=== PATIENT | male | born 1940 | race Caucasian/White ===

== ENCOUNTER 2019-02-11 17:48 | Emergency (ER) | payer OTHER ==
[2019-02-11] MEDS ORDERED: NA CHLORIDE 0.9% 2,000 ML ONE (19:42)
[2019-02-11] MEDS ORDERED: NA CHLORIDE 0.9% 500 ML ONE (19:43)
[2019-02-11 19:54] LABS: Absolute Lymphocytes (CBC) 0.6 K/uL (0.7-4.9); Absolute Monocytes 1.1 K/uL (0.1-1.3); Absolute Neutrophil 5.9 K/uL (1.8-8.0); Basophils % 0.4 % (0-1.3); Eosinophils % 1.5 % (0-4.4); Hematocrit 41.6 % (39.6-49.0); Lymphocytes % 7.7 % (15.3-44.8); MPV 9.2 fL (7.6-11.3); Monocytes % 14.4 % (3.3-12.3); RBC Red Blood Cell Count 4.58 M/uL (4.33-5.43)
--- NOTE | 2019-02-11 20:00 | RAD REPORT ---
EXAM DESCRIPTION: RAD - Chest Single View - 02/11/2019 7:49 pm CLINICAL HISTORY: Cough;Fever Chest pain. COMPARISON: CHEST PA AND LAT 2 VIEW dated 08/09/2011; CHEST PA AND LAT 2 VIEW dated 08/11/2002 FINDINGS: Portable technique limits examination quality. The lungs are grossly clear. The heart is normal in size. No displaced fractures. IMPRESSION: No acute intrathoracic process suspected.
[2019-02-11 20:03] LABS: ALT/SGPT 24 U/L (12-78); AST/SGOT 15 U/L (15-37); Albumin 3.9 g/dL (3.4-5.0); Alkaline Phosphatase 116 U/L (45-117); BUN Blood Urea Nitrogen 11 mg/dL (7-18); Bicarbonate 26 mmol/L (21-32); Bilirubin Direct 0.2 mg/dL (0-0.2); Bilirubin Total 0.8 mg/dL (0.2-1.0); CKMB Creatine Kinase MB < 1.0 ng/mL (0.3-3.6); Creatine Phosphokinase 145 U/L (39-308); Glucose Level 181 mg/dL (74-106); Lipase 108 U/L (73-393); Potassium 3.8 mmol/L (3.5-5.1); Protein, Total 7.4 g/dL (6.4-8.2); Sodium Level 136 mmol/L (136-145); Troponin (Emerg Dept Use Only) < 0.02 ng/mL (0.0-0.045)
[2019-02-11] MEDS ORDERED: OSELTAMIVIR 75 MG CAP ONE (20:50)
[2019-02-11 20:51] LABS: Urine Blood TRACE (NEG); Urine Glucose TRACE (NEG); Urine Protein 1+ (NEG); Urine Specific Gravity 1.015 (1.005-1.030)
[2019-02-11 21:06] LABS: Urine Bacteria NONE SEEN /HPF (NONE SEEN); Urine Culture Reflex Order NOT NEEDED; Urine RBC <5 /HPF (NONE SEEN)
--- NOTE | 2019-02-11 21:07 | ER ---
Nurse's Notes [facility] Name: Boris Grimaldo Age: 78 yrs Sex: Male : 1940 Arrival Date: 02/11/2019 Time: 17:51 Bed 13 Private MD: Diagnosis: Influenza due to identified novel influenza A virus Presentation: 02/11 18:17 Presenting complaint: states: Fever since last night, fatigue, slept all day, 1 ph episode or urinary incontinence, and confusion after waking, denies pain ,N/V/D. Transition of care: patient was not received from another setting of care. Onset of symptoms was February 11, 2019. Risk Assessment: Do you want to hurt yourself or someone else? Patient reports no desire to harm self or others. Initial Sepsis Screen: Does the patient meet any 2 criteria? No. Patient's initial sepsis screen is negative. Does the patient have a suspected source of infection? Yes: Dysuria/Frequency/Urgency/UTI. Initial Sepsis Screen: Does the patient meet any 2 criteria? Altered Mental Status. HR > 90 bpm. Yes Does the patient have a suspected source of infection?. Care prior to arrival: Medication(s) given: Tylenol, 1000 mg, at 1730. 18:17 Method Of Arrival: Wheelchair ph 18:17 Acuity: BABATUNDE 2 ph Triage Assessment: 19:30 General: Appears in no apparent distress. comfortable, Behavior is calm, cooperative, cc3 appropriate for age. 19:30 Pain: Denies pain. EENT: No signs and/or symptoms were reported regarding the EENT cc3 system. Neuro: Level of Consciousness is awake, alert, obeys commands, Oriented to person, place, situation. Cardiovascular: Patient's skin is warm and dry. Respiratory: Airway is patent Respiratory effort is even, unlabored, Respiratory pattern is regular, symmetrical. GI: Abdomen is round non-distended. : No signs and/or symptoms were reported regarding the genitourinary system. Derm: No signs and/or symptoms reported regarding the dermatologic system. Musculoskeletal: Circulation, motion, and sensation intact. Range of motion: intact in bilateral lower limbs. Historical: - Allergies: 18:22 Codeine; ph - PMHx: 18:22 Diabetes - NIDDM; Hyperlipidemia; Hypertension; Dementia; ph - PSHx: 18:22 hydrocele; Lithotripsy; ph - Immunization history:: Adult Immunizations not up to date. - Social history:: Smoking status: Patient/guardian denies using tobacco, never smoked. - Ebola Screening: : No symptoms or risks identified at this time. Screenin:15 Abuse screen: Denies threats or abuse. Denies injuries from another. Nutritional cc3 screening: No deficits noted. Tuberculosis screening: No symptoms or risk factors identified. Fall Risk Ambulatory Aid- None/Bed Rest/Nurse Assist (0 pts). Gait- Weak (10 pts.). Mental Status- Overestimates/Forgets Limitations (15 pts.). Assessment: 19:29 Pain: Denies pain. Neuro: Level of Consciousness is awake, alert, obeys commands, ls4 Oriented to person, Inspector Set Up And Lay Out are equal bilaterally. Respiratory: Reports cough that is non-productive, hacking. : Parent/caregiver report the patient having incontinence since over last month. 19:30 Reassessment: Patient appears in no apparent distress at this time. Patient and/or cc3 family updated on plan of care and expected duration. Pain level reassessed. Patient is alert, oriented x 3, equal unlabored respirations, skin warm/dry/pink. Received from morning shift RN Carmen as a case of fever and altered mental status. With IV cannulas gauge 20 at the right hand and right wrist saline locked. Still to start the ordered IV fluids. 20:09 Reassessment: Patient appears in no apparent distress at this time. Patient and/or cc3 family updated on plan of care and expected duration. Pain level reassessed. Patient is alert, oriented x 3, equal unlabored respirations, skin warm/dry/pink. 21:45 Reassessment: Patient appears in no apparent distress at this time. Patient and/or cc3 family updated on plan of care and expected duration. Pain level reassessed. Patient is alert, oriented x 3, equal unlabored respirations, skin warm/dry/pink. EYAD Cai discharged the patient home with prescription given. IV cannulas removed and patient left ER vitally stable by wheelchair escorted by me and the patient's family. Patient denies pain at this time. Patient states feeling better. Vital Signs: 18:22 BP 149 / 98; Pulse 110; Resp 22; Temp 99.9(O); Pulse Ox 96% on R/A; ph 19:20 BP 159 / 99; Pulse 107; Resp 20 S; Pulse Ox 98% on R/A; cc3 19:21 Weight 79.38 kg (R); Height 5 ft. 6 in. (167.64 cm) (R); ls4 20:06 BP 175 / 112; Pulse 105; Resp 20 S; Pulse Ox 98% on R/A; cc3 21:15 BP 169 / 97; Pulse 101; Resp 20 S; Temp 99.9(O); Pulse Ox 98% on R/A; cc3 19:21 Body Mass Index 28.25 (79.38 kg, 167.64 cm) ls4 ED Course: 17:51 Patient arrived in ED. tw3 18:21 Triage completed. ph 18:22 Arm band placed on. ph 18:36 Carmen Garcia, RN is Primary Nurse. ls4 18:48 Ekaterina Cai FNP-C is PHCP. kb 18:48 Roscoe Ortega MD is Attending Physician. kb 19:02 Radiology exam delayed due to IV insertion attempt and/or patient not having ml appropriate IV at this time. 19:10 No provider procedures requiring assistance completed. Initial lab(s) drawn, by sam rasheed sent to lab. Inserted saline lock: 20 gauge in right hand, using aseptic technique. Blood collected. 19:30 Patient has correct armband on for positive identification. Placed in gown. Bed in low cc3 position. Call light in reach. Side rails up X2. guillotine trimmer on. Pulse ox on. NIBP on. 19:49 Chest Single View XRAY In Process Unspecified. EDMS 21:45 IV discontinued, intact, bleeding controlled, No redness/swelling at site. Pressure cc3 dressing applied. Administered Medications: 19:30 Drug: NS 0.9% (30 ml/kg) 30 ml/kg Route: IV; Rate: bolus; Site: right hand; cc3 20:09 Follow up: Response: No adverse reaction; EYAD Cai ordered to give NS 1 liter only cc3 after reviewing the lab results. 20:45 Follow up: Response: No adverse reaction; IV Status: Completed infusion; IV Intake: cc3 1000ml 20:35 Drug: Tamiflu 75 mg Route: PO; cc3 21:00 Follow up: Response: No adverse reaction cc3 21:15 Drug: Ibuprofen 600 mg Route: PO; cc3 21:45 Follow up: Response: No adverse reaction cc3 Point of Care Testing: Blood Glucose: 19:26 Blood Glucose: 190 mg/dL; ls4 Ranges: Intake: 20:45 IV: 1000ml; Total: 1000ml. cc3 Outcome: 21:06 Discharge ordered by MD. elaine 21:45 Discharged to home via wheelchair, with family. cc3 21:45 Condition: stable 21:45 Discharge instructions given to patient, family, Instructed on discharge instructions, follow up and referral plans. medication usage, Demonstrated understanding of instructions, follow-up care, medications, Prescriptions given X 1. 21:53 Patient left the ED. cc3 Signatures: Dispatcher [employer] EDMS Ekaterina Cai, ELECTRONIC EQUIPMENT SET UP OPERATOR-C ELECTRONIC EQUIPMENT SET UP OPERATOR-Delphine Ma Patricia, RN RN Jacoby, Sharri tw3 Graciela Diaz cc3 Carmen Garcia RN RN ls4 Corrections: (The following items were deleted from the chart) 23:34 20:09 Reassessment: Patient appears in no apparent distress at this time. Patient cc3 and/or family updated on plan of care and expected duration. Pain level reassessed. Patient is alert, oriented x 3, equal unlabored respirations, skin warm/dry/pink. cc3
--- NOTE | 2019-02-11 21:07 | EDPHYS ---
Physician Documentation [facility] Name: Boris Grimaldo Age: 78 yrs Sex: Male : 1940 Arrival Date: 02/11/2019 Time: 17:51 Bed 13 Private MD: ED Physician Roscoe Ortega HPI: 02/11 19:09 This 78 yrs old Male presents to ER via Wheelchair with complaints of Fever, kb Altered Mental Status. 19:09 The patient reports fever, not measured (subjective), with an emergency department kb temperature of 99.9 degrees Fahrenheit. Onset: The symptoms/episode began/occurred last night. Modifying factors: there are no obvious modifying factors. Associated signs and symptoms: Pertinent positives: altered mental status,\E\ cough, that is dry, Pertinent negatives: abdominal pain, shortness of breath, vomiting. Severity of symptoms: At their worst the symptoms were moderate in the emergency department the symptoms have improved. The patient has not experienced similar symptoms in the past. The patient has not recently seen a physician. reports pt began to run fever last night, no other symptoms. Called Dr Somers today and was told it could be the flu, but he didn't have any other flu symptoms. States he had some confusion 2 hours prior to arrival, called Dr Somers again and was told it could be a UTI. reports fever since last night, cough started a few hours ago, and weakness today. Pt oriented to self at this time. reports he is back to normal. Historical: - Allergies: 18:22 Codeine; ph - PMHx: 18:22 Diabetes - NIDDM; Hyperlipidemia; Hypertension; Dementia; ph - PSHx: 18:22 hydrocele; Lithotripsy; ph - Immunization history:: Adult Immunizations not up to date. - Social history:: Smoking status: Patient/guardian denies using tobacco, never smoked. - Ebola Screening: : No symptoms or risks identified at this time. ROS: 19:09 ENT: Negative for injury, pain, and discharge, Neck: Negative for injury, pain, and kb swelling, Cardiovascular: Negative for chest pain, palpitations, and edema, Abdomen/GI: Negative for abdominal pain, nausea, vomiting, diarrhea, and constipation, Back: Negative for injury and pain, MS/Extremity: Negative for injury and deformity, Skin: Negative for injury, rash, and discoloration. 19:09 Constitutional: Positive for fatigue, fever, Negative for body aches, chills, malaise, poor PO intake, weight loss. 19:09 Respiratory: Positive for cough, Negative for dyspnea on exertion, hemoptysis, orthopnea, pleurisy, shortness of breath, sputum production, wheezing. 19:09 : Positive for urgency, did not make it to the restroom on one occasion. 19:09 Neuro: Positive for weakness. Exam: 19:09 Constitutional: This is a well developed, well nourished patient who is awake, alert, kb and in no acute distress. Head/Face: Normocephalic, atraumatic. ENT: Nares patent. No nasal discharge, no septal abnormalities noted. Tympanic membranes are normal and external auditory canals are clear. Oropharynx with no redness, swelling, or masses, exudates, or evidence of obstruction, uvula midline. Mucous membranes moist. Neck: Trachea midline, no thyromegaly or masses palpated, and no cervical lymphadenopathy. Supple, full range of motion without nuchal rigidity, or vertebral point tenderness. No Meningismus. Chest/axilla: Normal chest wall appearance and motion. Nontender with no deformity. No lesions are appreciated. Cardiovascular: Regular rate and rhythm with a normal S1 and S2. No gallops, murmurs, or rubs. Normal PMI, no JVD. No pulse deficits. Respiratory: Lungs have equal breath sounds bilaterally, clear to auscultation and percussion. No rales, rhonchi or wheezes noted. No increased work of breathing, no retractions or nasal flaring. Abdomen/GI: Soft, non-tender, with normal bowel sounds. No distension or tympany. No guarding or rebound. No evidence of tenderness throughout. Back: No spinal tenderness. No costovertebral tenderness. Full range of motion. Skin: Warm, dry with normal turgor. Normal color with no rashes, no lesions, and no evidence of cellulitis. MS/ Extremity: Pulses equal, no cyanosis. Neurovascular intact. Full, normal range of motion. 19:09 Neuro: Orientation: to person, situation. Vital Signs: 18:22 BP 149 / 98; Pulse 110; Resp 22; Temp 99.9(O); Pulse Ox 96% on R/A; ph 19:20 BP 159 / 99; Pulse 107; Resp 20 S; Pulse Ox 98% on R/A; cc3 19:21 Weight 79.38 kg (R); Height 5 ft. 6 in. (167.64 cm) (R); ls4 20:06 BP 175 / 112; Pulse 105; Resp 20 S; Pulse Ox 98% on R/A; cc3 21:15 BP 169 / 97; Pulse 101; Resp 20 S; Temp 99.9(O); Pulse Ox 98% on R/A; cc3 19:21 Body Mass Index 28.25 (79.38 kg, 167.64 cm) ls4 MDM: 18:48 Patient medically screened. kb 19:15 Data reviewed: vital signs, nurses notes. Data interpreted: Pulse oximetry: on room air kb is 96 %. Interpretation: normal. 20:39 Counseling: I had a detailed discussion with the patient and/or guardian regarding: the kb historical points, exam findings, and any diagnostic results supporting the discharge/admit diagnosis, lab results, radiology results, the need for outpatient follow up, a family practitioner, to return to the emergency department if symptoms worsen or persist or if there are any questions or concerns that arise at home. 02/11 18:57 Order name: Basic Metabolic Panel kb 02/11 18:57 Order name: Blood Culture Adult (2) kb 02/11 18:57 Order name: CBC with Diff; Complete Time: 20:05 kb 02/11 18:57 Order name: Ckmb kb 02/11 18:57 Order name: CPK kb 02/11 18:57 Order name: Lactate; Complete Time: 20:11 kb 02/11 18:57 Order name: LFT's kb 02/11 18:57 Order name: Lipase; Complete Time: 20:04 kb 02/11 18:57 Order name: Procalcitonin; Complete Time: 20:39 kb 02/11 18:57 Order name: Protime (+inr); Complete Time: 20:04 kb 02/11 18:57 Order name: Ptt, Activated; Complete Time: 20:04 kb 02/11 18:57 Order name: Troponin (emerg Dept Use Only); Complete Time: 20:04 kb 02/11 18:57 Order name: Urine Microscopic Only; Complete Time: 21:07 kb 02/11 18:57 Order name: Flu; Complete Time: 20:16 kb 02/11 18:57 Order name: Chest Single View XRAY; Complete Time: 20:04 kb 02/11 18:57 Order name: Accucheck; Complete Time: 19:28 kb 02/11 18:57 Order name: Cardiac monitoring; Complete Time: 20:04 kb 02/11 18:57 Order name: EKG - Nurse/Tech; Complete Time: 20:04 kb 02/11 18:57 Order name: IV Saline Lock - Large Bore; Complete Time: 20:04 kb 02/11 18:57 Order name: Labs collected and sent; Complete Time: 20:04 kb 02/11 18:57 Order name: O2 Per Protocol; Complete Time: 20:04 kb 02/11 18:57 Order name: O2 Sat Monitoring; Complete Time: 20:04 kb 02/11 18:58 Order name: Basic Metabolic Panel; Complete Time: 20:04 EDMS 02/11 18:58 Order name: CKMB Creatine Kinase MB; Complete Time: 20:04 EDMS 02/11 18:58 Order name: Creatine Phosphokinase; Complete Time: 20:04 EDMS 02/11 18:58 Order name: Liver (Hepatic) Function; Complete Time: 20:04 EDMS 02/11 20:41 Order name: Urine Dipstick--Ancillary (enter results); Complete Time: 20:59 mw2 02/11 18:57 Order name: Urine Dipstick-Ancillary (obtain specimen); Complete Time: 21:52 kb 02/11 21:06 Order name: Vital Signs; Complete Time: 21:46 kb Administered Medications: 19:30 Drug: NS 0.9% (30 ml/kg) 30 ml/kg Route: IV; Rate: bolus; Site: right hand; cc3 20:09 Follow up: Response: No adverse reaction; EYAD Cai ordered to give NS 1 liter only cc3 after reviewing the lab results. 20:45 Follow up: Response: No adverse reaction; IV Status: Completed infusion; IV Intake: cc3 1000ml 20:35 Drug: Tamiflu 75 mg Route: PO; cc3 21:00 Follow up: Response: No adverse reaction cc3 21:15 Drug: Ibuprofen 600 mg Route: PO; cc3 21:45 Follow up: Response: No adverse reaction cc3 Point of Care Testing: Blood Glucose: 19:26 Blood Glucose: 190 mg/dL; ls4 Ranges: Critical Glucose Levels:Adult <50 mg/dl or >400 mg/dl <40 mg/dl or >180 mg/dl Disposition: 02/12 09:21 Co-signature as Attending Physician, Roscoe Ortega MD I agree with the assessment and bassam plan of care. Disposition: 02/11/19 21:06 Discharged to Home. Impression: Influenza due to identified novel influenza A virus. - Condition is Stable. - Discharge Instructions: Influenza, Adult, [id number]. - Prescriptions for Tamiflu 75 mg Oral Capsule - take 1 capsule by ORAL route every 12 hours for 5 days; 10 capsule. - Medication Reconciliation Form, Thank You Letter, Antibiotic Education, Prescription Opioid Use form. - Follow up: Emergency Department; When: As needed; Reason: Worsening of condition. Follow up: Private Physician; When: 2 - 3 days; Reason: Recheck today's complaints, Continuance of care, Re-evaluation by your physician. Signatures: Dispatcher [employer] EDCT Ekaterina Cai, SIGNAL TESTER-C SIGNAL TESTER-Roscoe Beverly MD MD cha Hall, Patricia, RN RN ph Graciela Diaz cc3 Corrections: (The following items were deleted from the chart) 02/11 21:53 21:06 02/11/2019 21:06 Discharged to Home. Impression: Influenza due to identified cc3 novel influenza A virus. Condition is Stable. Discharge Instructions: Influenza, Adult, [id number]. Prescriptions for Tamiflu 75 mg Oral Capsule - take 1 capsule by ORAL route every 12 hours for 5 days; 10 capsule. and Forms are Medication Reconciliation Form, Thank You Letter, Antibiotic Education, Prescription Opioid Use. Follow up: Emergency Department; When: As needed; Reason: Worsening of condition. Follow up: Private Physician; When: 2 - 3 days; Reason: Recheck today's complaints, Continuance of care, Re-evaluation by your physician. kb
[2019-02-11] MEDS ORDERED: IBUPROFEN 400 MG TAB ONE (21:31)
[2019-02-11] MEDS ORDERED: IBUPROFEN 200 MG TAB PO ONE (21:31)
--- NOTE | 2019-02-13 09:27 | EKG ---
Test Date: 2019-02-11 Test Time: 19:51:25 Recruiter Coordinator: FIFI MEASUREMENT RESULTS: Intervals: Rate: 106 CT: 188 QRSD: 80 QT: 340 QTc: 451 [place]: P: 69 CT: 188 QRS: -16 T: 19 INTERPRETIVE STATEMENTS: Sinus tachycardia with occasional premature ventricular complexes Otherwise normal ECG Compared to ECG 10/17/2015 15:24:23 Ventricular premature complex(es) now present Sinus rhythm no longer present Atrial premature complex(es) no longer present Electronically Signed On 02-13-19 09:22:22 CDT by Eusebio Hernandez
== END 2019-02-11 21:53 | disposition home or self-care (01) ==
LOC: ER 17:48
DX: J10.1 Influenza due to other identified influenza virus with other respiratory manifestations (principal); I10 Essential (primary) hypertension; Z88.5 Allergy status to narcotic agent
CPT/HCPCS: 96365; 93005; 87040 ×2; 85025; 80048; 36415; 82550; 87205; 85610; 82962; 80076; 83605; 85730; 84484; 82553; 83690; 84145; 87804 ×2; 71045; 99284; J7030; 81003; 81015

== ENCOUNTER 2020-02-19 01:00 | Observation (INO) | payer OTHER ==
--- OUTSIDE RECORDS SUMMARY | 2020-02-19 01:05 | XMS REPORT ---
:1940 [facility] Address [address] [place] [address] Care Team Providers Name Role Phone MARLA ESPINAL Unavailable Unavailable Problems This patient has no known problems. Allergies, Adverse Reactions, Alerts This patient has no known allergies or adverse reactions. Medications This patient has no known medications. Results Test Description Test Time Test Comments Text Results Atomic Results Result Comments POCT-GLUCOSE METER 2019-11-01 08:42:00 Test Item Value Reference Range Comments POC-GLUCOSE METER (BEAKER) 128 mg/dL 70-110 : TESTED AT [address] (test ttfy=0406) [place], [address]: Social Work Lecturer/Dairy Equipment Specialist [id number] for Jackeline Colon POCT-GLUCOSE [id number] 17:44:00 Test Item Value Reference Range Comments POC-GLUCOSE METER (BEAKER) 194 mg/dL 70-110 : TESTED AT [address] (test odpp=1508) [facility], [address]: Social Work Lecturer/Dairy Equipment Specialist [id number] for DUKES, NINI POCT-GLUCOSE [id number] 12:42:00 Test Item Value Reference Range Comments POC-GLUCOSE METER (BEAKER) 190 mg/dL 70-110 : TESTED AT [address] (test iybp=3168) [facility], [address]: Social Work Lecturer/Dairy Equipment Specialist [id number] for DUKES, NINI POCT-GLUCOSE [id number] 09:24:00 Test Item Value Reference Range Comments POC-GLUCOSE METER (BEAKER) 159 mg/dL 70-110 : TESTED AT [address] (test ieij=8907) [facility], [address]: Social Work Lecturer/Dairy Equipment Specialist [id number] for DUKES, NINI BASIC METABOLIC [id number] 07:10:00 Test Item Value Reference Range Comments SODIUM (BEAKER) (test 138 meq/L 136-145 bwmm=736) POTASSIUM (BEAKER) (test 3.7 meq/L 3.5-5.1 mumf=892) CHLORIDE (BEAKER) (test 103 meq/L 98-107 qtzf=371) CO2 (BEAKER) (test 26 meq/L 22-29 ffjb=710) BLOOD UREA NITROGEN 14 mg/dL 7-21 (BEAKER) (test zzlb=442) CREATININE (BEAKER) (test 1.21 mg/dL 0.57-1.25 iezg=607) GLUCOSE RANDOM (BEAKER) 156 mg/dL 70-105 (test hkhi=364) CALCIUM (BEAKER) (test 9.2 mg/dL 8.4-10.2 grtz=306) EGFR (BEAKER) (test 58 mL/min/1.73 sq m ESTIMATED GFR IS NOT upsz=3154) ACCURATE CREATININE CLEARANCE IN PREDICTING GLOMERULAR FILTRATION RATE. ESTIMATED GFR IS NOT APPLICABLE FOR DIALYSIS PATIENTS. HEMOGLOBIN [id number] 06:47:00 Test Item Value Reference Range Comments HEMOGLOBIN A1C (BEAKER) (test auxx=349) 7.7 % 4.3-6.1 CBC (HEMOGRAM ONLY)2019-10-31 05:16:00 Test Item Value Reference Range Comments WHITE BLOOD CELL COUNT (BEAKER) (test xvzz=892) 6.8 K/ L 3.5-10.5 RED BLOOD CELL COUNT (BEAKER) (test sufd=801) 4.28 M/ L 4.63-6.08 HEMOGLOBIN (BEAKER) (test sgbz=146) 13.0 GM/DL 13.7-17.5 HEMATOCRIT (BEAKER) (test gxxk=482) 39.4 % 40.1-51.0 MEAN CORPUSCULAR VOLUME (BEAKER) (test yynv=717) 92.1 fL 79.0-92.2 MEAN CORPUSCULAR HEMOGLOBIN (BEAKER) (test 30.4 pg 25.7-32.2 wqlo=442) MEAN CORPUSCULAR HEMOGLOBIN CONC (BEAKER) (test 33.0 GM/DL 32.3-36.5 htft=067) RED CELL DISTRIBUTION WIDTH (BEAKER) (test 13.0 % 11.6-14.4 ywwv=198) PLATELET COUNT (BEAKER) (test ugpo=912) 288 K/CU MM 150-450 MEAN PLATELET VOLUME (BEAKER) (test mmwk=967) 9.6 fL 9.4-12.4 NUCLEATED RED BLOOD CELLS (BEAKER) (test 0 /100 WBC 0-0 nipc=826) POCT-GLUCOSE [id number] 21:14:00 Test Item Value Reference Range Comments POC-GLUCOSE METER (BEAKER) 162 mg/dL 70-110 : TESTED AT [facility] [address] [place] [address] (test kyar=4754) [facility], [address]: Social Work Lecturer/Dairy Equipment Specialist [id number] for SUHAIL TREVINO POCT-GLUCOSE [id number] 17:14:00 Test Item Value Reference Range Comments POC-GLUCOSE METER (BEAKER) 160 mg/dL 70-110 : TESTED AT [address] (test elna=5472) [facility], [address]: Social Work Lecturer/Dairy Equipment Specialist [id number] for KOLLEADE, RITCHEL URINALYSIS W/ [id number] 13:34:00 Test Item Value Reference Range Comments COLOR (BEAKER) (test lrfp=257) Yellow CLARITY (BEAKER) (test bcsh=735) Clear SPECIFIC GRAVITY UA (BEAKER) (test jxjd=289) 1.017 1.001-1.035 PH UA (BEAKER) (test troi=148) 6.0 5.0-8.0 PROTEIN UA (BEAKER) (test dcpk=507) Negative Negative GLUCOSE UA (BEAKER) (test epme=703) Negative Negative KETONES UA (BEAKER) (test tbgc=056) Negative Negative BILIRUBIN UA (BEAKER) (test bxrc=052) Negative Negative BLOOD UA (BEAKER) (test kybq=458) Negative Negative NITRITE UA (BEAKER) (test infc=614) Negative Negative LEUKOCYTE ESTERASE UA (BEAKER) (test imfn=877) Small Negative UROBILINOGEN UA (BEAKER) (test dlpx=937) 0.2 mg/dL 0.2-1.0 RBC UA (BEAKER) (test peqt=428) < /HPF WBC UA (BEAKER) (test yhpv=739) 1 /HPF BACTERIA (BEAKER) (test haki=612) Occasional MUCUS (BEAKER) (test mfki=1265) Occasional SQUAMOUS EPITHELIAL (BEAKER) (test ahej=814) 1 /HPF CASTS (BEAKER) (test ahmd=0923) 1 /LPF SOURCE(BEAKER) (test olin=5348) RAD, CHEST, PA OR AP, 1 [id number] 12:57:00Reason for exam:->chest pain Should this be performed at the bedside?->YesFINAL REPORT TECHNIQUE: Frontal view of the chest. INDICATION: chest pain. COMPARISON: None. FINDINGS: LINES/TUBES: None. LUNGS: The lungs are well inflated and clear. No consolidation or pulmonary edema. PLEURA: No pneumothorax or significant pleural effusion. HEART AND MEDIASTINUM: The cardiomediastinal silhouette is within normal limits. SOFT TISSUES AND BONES: Unremarkable. IMPRESSION:No acute cardiopulmonary abnormalities. Signed: Neil Culp Verified Date/Time: 10/30/2019 12:57:30 Reading Location: [address] Body Reading Room TROPONIN [id number] 12:37:00 Test Item Value Reference Range Comments TROPONIN I (BEAKER) (test leod=228) < ng/mL 0.00-0.03 Troponin I (TnI) levels must be interpreted in the context of the presenting symptoms and the clinical findings. Elevated TnI levels indicate myocardial damage, but are not specific for ischemic heart disease. Elevated TnI levels are seen in patients with other cardiac conditions (including myocarditis and congestive heart failure), and slight TnI elevations occur in patients with other conditions, including sepsis, renal failure, acidosis, acute neurological disease, and persistent tachyarrhythmia.C-REACTIVE [id number] 12:34:00 Test Item Value Reference Range Comments C-REACTIVE PROTEIN (BEAKER) (test ovfi=681) 0.17 mg/dL 0.00-0.50 [id number] 12:31:00 Test Item Value Reference Range Comments MAGNESIUM (BEAKER) (test 1.9 mg/dL 1.6-2.6 Specimen slightly hemolyzed qbxc=861) [id number] 12:31:00 Test Item Value Reference Range Comments PHOSPHORUS (BEAKER) (test 3.2 mg/dL 2.3-4.7 Specimen slightly hemolyzed tojn=930) BASIC METABOLIC [id number] 12:31:00 Test Item Value Reference Range Comments SODIUM (BEAKER) (test 138 meq/L 136-145 ptmz=892) POTASSIUM (BEAKER) (test 4.9 meq/L 3.5-5.1 Specimen slightly hbvm=872) hemolyzed CHLORIDE (BEAKER) (test 106 meq/L 98-107 syqr=755) CO2 (BEAKER) (test 23 meq/L 22-29 pqtv=658) BLOOD UREA NITROGEN 16 mg/dL 7-21 (BEAKER) (test yyyt=555) CREATININE (BEAKER) 1.38 mg/dL 0.57-1.25 Specimen slightly (test oyqh=168) hemolyzed GLUCOSE RANDOM (BEAKER) 122 mg/dL 70-105 (test tduy=833) CALCIUM (BEAKER) (test 9.5 mg/dL 8.4-10.2 eqqc=763) EGFR (BEAKER) (test 50 mL/min/1.73 sq m INSUFFICIENT CLINICAL DATA ofce=2813) TO CALCULATE ESTIMATED GFR. HEPATIC FUNCTION [id number] 12:31:00 Test Item Value Reference Range Comments TOTAL PROTEIN (BEAKER) (test 6.9 gm/dL 6.0-8.3 Specimen slightly hemolyzed awkk=519) ALBUMIN (BEAKER) (test 3.9 g/dL 3.5-5.0 Specimen slightly hemolyzed euyy=8431) BILIRUBIN TOTAL (BEAKER) (test 0.6 mg/dL 0.2-1.2 Specimen slightly hemolyzed yjuo=579) BILIRUBIN DIRECT (BEAKER) (test 0.2 mg/dL 0.1-0.5 Specimen slightly hemolyzed hevv=362) ALKALINE PHOSPHATASE (BEAKER) 86 U/L 40-150 (test dirg=540) AST (SGOT) (BEAKER) (test 15 U/L 5-34 Specimen slightly hemolyzed gxqo=182) ALT (SGPT) (BEAKER) (test 10 U/L 6-55 Specimen slightly hemolyzed nxbl=370) PT/[id number] 12:29:00 Test Item Value Reference Range Comments PROTIME (BEAKER) (test fxvp=195) 12.6 seconds 11.9-14.2 INR (BEAKER) (test ezfl=941) 1.0 <=5.9 PARTIAL THROMBOPLASTIN TIME (BEAKER) (test 30.0 seconds 22.5-36.0 usvf=986) Effective 04/28/2019: PT Reference Range ChangeNew: 11.9-14.2 Previous: 11.7- 14.7RECOMMENDED COUMADIN/WARFARIN INR THERAPY RANGESSTANDARD DOSE: 2.0-3.0 Includes: PROPHYLAXIS for venous thrombosis, systemic embolization; TREATMENT for venous thrombosis and/or pulmonary embolus.HIGH RISK: Target INR is2.5-3.5 for patients wiht mechanical heart valves.CT, BRAIN, WITHOUT [id number] 12:23:00Reason for exam:->ALTERED MENTAL STATUSworsening over the last 2-3 daysWhat is the patient's sedation requirement?->No SedationFINAL REPORT CT, BRAIN, WITHOUT CONTRAST INDICATION: Altered mental statusALTERED MENTAL STATUS TECHNIQUE: Noncontrast axial imaging was obtained from the vertex to the skull base. Axial images were reconstructed using a bone algorithm. DOSE REDUCTION: Dose modulation, iterativereconstruction, and/or weight-based adjustment of the mA/kV was utilized to reduce the radiation dose to as low as reasonably achievable. COMPARISON: None. FINDINGS: Intracranial: Generalized cerebral atrophy with ex vacuo dilatation of the ventricular system proportionate to sulci. Remote left cerebellar hemisphere infarct. Scattered foci of hypoattenuation within the periventricular and subcorticalwhite matter are a nonspecific finding commonly attributed to chronic small vessel ischemic disease.No intracranial hemorrhage or abnormal extra-axial collection. No evidence of acute territorial infarct. No mass effect. No hydrocephalus. Osseous structures: No fracture. No suspicious lesion. Paranasal sinuses and mastoid air cells: Frothy air-fluid level in the right maxillary sinus with underlyingmucosal thickening. Mastoids are clear. Orbital contents: Globes are intact. IMPRESSION: 1.No acute intracranial hemorrhage or territorial infarct.2.Right maxillary sinusitis. If there is persistent clinical concern for intracranial pathology, MR examination is recommended for further characterization. Signed: Atiya Mccoy MDReport Verified Date/Time: 2018 12:23:54 Electronically signed by: ATIYA MCCOY MD on 2018 12:23 PMCBC W/PLT COUNT & AUTO [id number] 12:09:00 Test Item Value Reference Range Comments WHITE BLOOD CELL COUNT (BEAKER) (test nvdo=441) 7.2 K/ L 3.5-10.5 RED BLOOD CELL COUNT (BEAKER) (test lnuz=923) 4.25 M/ L 4.63-6.08 HEMOGLOBIN (BEAKER) (test yczw=696) 13.1 GM/DL 13.7-17.5 HEMATOCRIT (BEAKER) (test jadf=761) 39.6 % 40.1-51.0 MEAN CORPUSCULAR VOLUME (BEAKER) (test pgzb=659) 93.2 fL 79.0-92.2 MEAN CORPUSCULAR HEMOGLOBIN (BEAKER) (test 30.8 pg 25.7-32.2 bzgw=607) MEAN CORPUSCULAR HEMOGLOBIN CONC (BEAKER) (test 33.1 GM/DL 32.3-36.5 knhy=281) RED CELL DISTRIBUTION WIDTH (BEAKER) (test 12.9 % 11.6-14.4 ushl=618) PLATELET COUNT (BEAKER) (test slpi=556) 286 K/CU MM 150-450 MEAN PLATELET VOLUME (BEAKER) (test eyas=158) 10.0 fL 9.4-12.4 NUCLEATED RED BLOOD CELLS (BEAKER) (test 0 /100 WBC 0-0 ysqw=649) NEUTROPHILS RELATIVE PERCENT (BEAKER) (test 58 % dryy=660) LYMPHOCYTES RELATIVE PERCENT (BEAKER) (test 24 % eolw=307) MONOCYTES RELATIVE PERCENT (BEAKER) (test 13 % cfbs=902) EOSINOPHILS RELATIVE PERCENT (BEAKER) (test 4 % vahd=577) BASOPHILS RELATIVE PERCENT (BEAKER) (test 1 % wzxi=912) NEUTROPHILS ABSOLUTE COUNT (BEAKER) (test 4.17 K/ L 1.78-5.38 huyq=824) LYMPHOCYTES ABSOLUTE COUNT (BEAKER) (test 1.72 K/ L 1.32-3.57 nhlb=601) MONOCYTES ABSOLUTE COUNT (BEAKER) (test 0.90 K/ L 0.30-0.82 qquc=439) EOSINOPHILS ABSOLUTE COUNT (BEAKER) (test 0.32 K/ L 0.04-0.54 ednz=130) BASOPHILS ABSOLUTE COUNT (BEAKER) (test 0.05 K/ L 0.01-0.08 fvwu=239) IMMATURE GRANULOCYTES-RELATIVE PERCENT (adFreeqAKER) 1 % 0-1 (test ogve=7108)
--- OUTSIDE RECORDS SUMMARY | 2020-02-19 01:05 | XMS REPORT ---
:1940 Author Organization [employer] Care Team Providers Name Role Phone Dm, Starr Provider Role Unavailable Allergies, Adverse Reactions, Alerts Substance Reaction Event Type N.K.D.A. Info Not Available Non Drug Allergy Problems Problem Type Condition Code Onset Dates Condition Status Problem Post-void dribbling N39.43 Active Problem Benign prostatic hyperplasia with N40.1 Active lower urinary tract symptoms Problem Kidney stones N20.0 Active Assessment Post-void dribbling N39.43 Active Assessment Kidney stones N20.0 Active Assessment Benign prostatic hyperplasia with N40.1 Active lower urinary tract symptoms Medications Medication Code Code Instructions Start End Status Dosage System Date Date Tamsulosin HCl [facility] 29633073570 0.4 MG Orally Active 1 capsule Once a day Metformin HCl [facility] 84139517423 1000 MG Orally Active 1 tablet Once a day with a meal Esomeprazole [facility] 81111055295 40 MG Orally Active 1 capsule Magnesium Once a day Rivastigmine ND 12179737115 4.6 MG/24HR Active 1 patch to Transdermal skin Once a day Atorvastatin [facility] 12926081538 20 MG Orally Active 1 tablet Calcium Once a day Vitamin B12 ND 26310547935 1000 MCG Orally Active 1 tablet Once a day Folic Acid [facility] 42195932841 400 MCG Orally Active 1 tablet Once a day Memantine HCl [facility] 85689394481 5 (28)-10 (21) Active as MG Orally directed Tadalafil ND 31341967903 20 MG Orally Active 1 tablet Ibandronate ND 74378758420 150 MG Orally Active 1 tablet Sodium Multi For Him ND 87747063797 - Orally Active as directed Aspir-81 ND 62445048277 81 MG Orally Active 1 tablet Once a day Amlodipine ND 46781524735 5-10 MG Orally Active as Besy-Benazepril directed HCl Ergocalciferol [facility] 63585272019 [address]05 UNIT Active 1 capsule Orally Results No Known Results Summary Purpose eClinicalWorks Submission
[2020-02-19] MEDS ORDERED: THIAMINE 200 MG/2 ML INJ ONE (01:35)
[2020-02-19] MEDS ORDERED: NA CHLORIDE 0.9% 1,000 ML ONE ×2 (01:35→04:35)
[2020-02-19 01:41] LABS: Protime INR 1.03
[2020-02-19 01:43] LABS: Absolute Lymphocytes (CBC) 1.3 K/uL (0.7-4.9); Basophils % 0.4 % (0-1.3); Hematocrit 43.4 % (39.6-49.0); MPV 9.5 fL (7.6-11.3); RBC Red Blood Cell Count 4.72 M/uL (4.33-5.43)
[2020-02-19 01:58] LABS: ALT/SGPT 17 U/L (12-78); AST/SGOT 14 U/L (15-37); Albumin 3.6 g/dL (3.4-5.0); Alkaline Phosphatase 95 U/L (45-117); BUN Blood Urea Nitrogen 42 mg/dL (7-18); Bicarbonate 26 mmol/L (21-32); Bilirubin Direct 0.3 mg/dL (0-0.2); Bilirubin Total 0.8 mg/dL (0.2-1.0); Glucose Level 127 mg/dL (74-106); Lipase 52 U/L (73-393); NT PRO-BNP 223 pg/mL (<450); Potassium 4.7 mmol/L (3.5-5.1); Protein, Total 7.3 g/dL (6.4-8.2); Sodium Level 143 mmol/L (136-145); Troponin (Emerg Dept Use Only) < 0.02 ng/mL (0.0-0.045)
[2020-02-19 02:57] LABS: Urine Blood NEGATIVE (NEG); Urine Glucose NEGATIVE (NEG); Urine Protein TRACE (NEG); Urine Specific Gravity >1.030 (1.005-1.030)
--- NOTE | 2020-02-19 04:01 | ER ---
Nurse's Notes [facility] Renée Name: Boris Grimaldo Age: 79 yrs Sex: Male : 1940 Arrival Date: 02/19/2020 Time: 01:03 Bed 2 Private MD: Diagnosis: Dementia in other diseases classified elsewhere;Altered mental status, unspecified;Unspecified kidney failure;Type 2 diabetes mellitus;Volume depletion-dehydration Presentation: 02/18 01:05 Chief complaint: EMS states: they received call from Ashley Godoy stating that Pt has ah not been normal since Friday. Vital from EMS 116/64, 98.4, 85, 95% and BS 135. 01:05 Coronavirus screen: The patient has NOT traveled to a country currently being monitored ah by the [facility] [place] within the last 14 days. The patient has NOT had contact with any known and/or suspected case of coronavirus. Ebola Screen: No symptoms or risks identified at this time. Initial Sepsis Screen: Does the patient meet any 2 criteria? No. Patient's initial sepsis screen is negative. Does the patient have a suspected source of infection? No. Patient's initial sepsis screen is negative. Initial Sepsis Screen: Does the patient meet any 2 criteria? No. Patient's initial sepsis screen is negative. Does the patient have a suspected source of infection? No. Patient's initial sepsis screen is negative. Risk Assessment: Do you want to hurt yourself or someone else? Patient reports no desire to harm self or others. 01:05 Method Of Arrival: EMS: [facility] 01:05 Acuity: BABATUNDE 3 01:50 Onset of symptoms was February 19, 2020. Triage Assessment: 01:18 General: Appears unkempt, Behavior is inappropriate for age. ah 01:20 Neuro: Level of Consciousness is awake, alert, Oriented to none. Historical: - Allergies: 01:17 Codeine; - PMHx: 01:17 Dementia; Diabetes - NIDDM; Hyperlipidemia; Hypertension; Alzheimers; Parkinsons; - PSHx: 01:17 Unable to obtain; - Immunization history:: Flu vaccine is up to date. - Social history:: Smoking status: Patient/guardian denies using tobacco, Patient/guardian denies using alcohol, the patient reports quitting approximately .5 years ago. Screenin:18 Abuse screen: Denies threats or abuse. Nutritional screening: No deficits noted. Tuberculosis screening: No symptoms or risk factors identified. Fall Risk None identified. Assessment: 01:10 General: Appears in no apparent distress. Behavior is appropriate for age. Pain: Unable ea to use pain scale. FLACC scale score is 0 out of 10. Neuro: Level of Consciousness is awake, alert, Oriented to none. Cardiovascular: Patient's skin is warm and dry. Respiratory: Airway is patent Respiratory effort is even, unlabored, Respiratory pattern is regular, symmetrical, Breath sounds are clear bilaterally. Derm: Skin is fragile, is thin, Skin is dry, Skin is pale, Skin temperature is warm. 01:55 Reassessment: Patient appears in no apparent distress at this time. Patient and/or ea family updated on plan of care and expected duration. Pain level reassessed. Patient is alert, oriented x 3, equal unlabored respirations, skin warm/dry/pink. at bedside. No needs noted at this time. 02:55 Reassessment: Pt alert, oriented to zero, respirations even and unlabored, chest ea expansions even and symmetrical. No s/s of pain or discomfort noted at this time. remains at bedside. 03:30 Reassessment: Pt alert, confused and oriented x 0, respirations even and unlabored, ea chest expansions even and symmetrical, chest expansions even and symmetrical. No s/s of pain or discomfort noted at this time. 04:30 Reassessment: Patient appears in no apparent distress at this time. Patient and/or ea family updated on plan of care and expected duration. Pain level reassessed. at bedside. No needs voiced at this time Patient denies pain at this time. 05:03 Reassessment: Report given to receiving nurse on second floor. ea 05:20 Reassessment: Reassessment: Patient and/or family updated on plan of care and expected ea duration. Pain level reassessed. Alert and confused, respirations even and unlabored, chest expansions even and symmetrical. No s/s of pain or discomfort noted at this time. Pt admitted to second floor. Left ED via stretcher per tech. Pt tolerating well. Vital Signs: 01:00 BP 109 / 75; Pulse 104; Resp 16; Pulse Ox 93% ; ea 01:05 BP 109 / 75; Pulse 109; Resp 19; Temp 98.3; Pulse Ox 95% ; Weight 76.66 kg; Height 5 ft. 6 in. (167.64 cm); 02:00 BP 105 / 88; Pulse 95; Resp 19; Pulse Ox 96% on R/A; ea 02:30 BP 102 / 55; Pulse 99; Resp 15; Pulse Ox 97% ; ea 03:36 BP 100 / 77; Pulse 110; Resp 20; Pulse Ox 97% ; ea 04:30 BP 115 / 59; Pulse 107; Resp 15; Pulse Ox 97% ; ea 05:00 BP 102 / 55; Pulse 99; Resp 15; Temp 98.3(TE); Pulse Ox 97% ; ea 01:05 Body Mass Index 27.28 (76.66 kg, 167.64 cm) ED Course: 01:03 Patient arrived in ED. ds1 01:08 Loreta Soliman, RN is Primary Nurse. ah 01:11 Roscoe Ortega MD is Attending Physician. bassam 01:15 Triage completed. ah 01:19 Arm band placed on right wrist. 01:26 Patient has correct armband on for positive identification. Bed in low position. Call ea light in reach. Side rails up X2. 01:26 Inserted saline lock: 20 gauge in left forearm, using aseptic technique. Blood ea collected. 01:51 XRAY Chest (1 view) In Process Unspecified. EDMS 02:25 CT Head Brain wo Cont In Process Unspecified. EDMS 02:50 Straight cath inserted, using sterile technique, 18 Fr. Specimen obtained. ea 03:58 Samir Pritchett MD is Hospitalizing Provider. bassam 04:32 No provider procedures requiring assistance completed. Patient admitted, IV remains in ea place. Administered Medications: 01:36 Drug: Thiamine 100 mg Route: IV; Rate: per protocol; Site: left forearm; ea 05:00 Follow up: Response: No adverse reaction ea 05:05 Follow up: Response: No adverse reaction; IV Status: Completed infusion ea 01:37 Drug: NS 0.9% 1000 ml Route: IV; Rate: 1 bolus; Site: left forearm; ea 05:00 Follow up: IV Status: Completed infusion; IV Intake: 1000ml ea 04:37 Drug: NS 0.9% 1000 ml Route: IV; Rate: 125 ml/hr; Site: right antecubital; jb4 05:00 Follow up: IV Status: Infusion continued upon admission ea 04:37 Drug: Rocephin 1 grams Route: IV; Rate: per protocol; Site: right antecubital; jb4 04:59 Follow up: Response: No adverse reaction; IV Status: Completed infusion; IV Intake: 10mlea Intake: 04:59 IV: 10ml; Total: 10ml. ea 05:00 IV: 1000ml; Total: 1010ml. ea Outcome: 03:59 Decision to Hospitalize by Provider. bassam 05:01 Admitted to Med/surg accompanied by tech, room 230, on monitor, Report called to ea Receiving nurse on second floor 05:01 Condition: stable 05:01 Instructed on the need for admit. 05:30 Patient left the ED. ea Signatures: Dispatcher [employer] EDMS Roscoe Ortega MD MD cha Sanford, Demi ds1 Dominick Jackson, RN RN jb4 Susanna Montgomery RN RN ea Harris, Amy RN RN Corrections: (The following items were deleted from the chart) 05:10 02:30 BP 102 / 55; Pulse 99bpm; Resp 15bpm; Pulse Ox 97%; ea ea 05:13 02:30 BP 115 / 59; Pulse 107bpm; Resp 15bpm; Pulse Ox 97%; Temp 98.3F; ea ea 05:33 04:30 Reassessment: Patient appears in no apparent distress at this time. Patient ea and/or family updated on plan of care and expected duration. Pain level reassessed. Patient is alert, oriented x 3, equal unlabored respirations, skin warm/dry/pink. at bedside. No needs voiced at this time Patient denies pain at this time. ea
--- NOTE | 2020-02-19 04:02 | EDPHYS ---
Physician Documentation [facility] Name: Boris Grimaldo Age: 79 yrs Sex: Male : 1940 Arrival Date: 02/19/2020 Time: 01:03 Bed 2 Private MD: ED Physician Roscoe Ortega HPI: 02/18 01:25 This 79 yrs old Male presents to ER via EMS with complaints of Altered Mental bassam Status. 01:25 The patient presents with confusion, decreased mental status. Onset: The bassam symptoms/episode began/occurred 3 day(s) ago. Possible causes: unknown. Associated signs and symptoms: The patient has no apparent associated signs or symptoms. Patient's baseline: Neuro: alert and fully oriented. The patient has experienced similar episodes in the past, multiple times. Historical: - Allergies: :17 Codeine; ah - PMHx: :17 Dementia; Diabetes - NIDDM; Hyperlipidemia; Hypertension; Alzheimers; Parkinsons; ah - PSHx: :17 Unable to obtain; - Immunization history:: Flu vaccine is up to date. - Social history:: Smoking status: Patient/guardian denies using tobacco, Patient/guardian denies using alcohol, the patient reports quitting approximately .5 years ago. ROS: 01:26 Constitutional: Negative for fever, chills, and weight loss, Eyes: Negative for injury, bassam pain, redness, and discharge, ENT: Negative for injury, pain, and discharge, Neck: Negative for injury, pain, and swelling, Cardiovascular: Negative for chest pain, palpitations, and edema, Respiratory: Negative for shortness of breath, cough, wheezing, and pleuritic chest pain, Abdomen/GI: Negative for abdominal pain, nausea, vomiting, diarrhea, and constipation, Back: Negative for injury and pain, : Negative for injury, bleeding, discharge, and swelling, MS/Extremity: Negative for injury and deformity, Skin: Negative for injury, rash, and discoloration, Psych: Negative for depression, anxiety, suicide ideation, homicidal ideation, and hallucinations, Allergy/Immunology: Negative for hives, rash, and allergies, Endocrine: Negative for neck swelling, polydipsia, polyuria, polyphagia, and marked weight changes, Hematologic/Lymphatic: Negative for swollen nodes, abnormal bleeding, and unusual bruising. 01:26 Neuro: Positive for altered mental status. Exam: 01:26 Head/Face: Normocephalic, atraumatic. Eyes: Pupils equal round and reactive to light, bassam extra-ocular motions intact. Lids and lashes normal. Conjunctiva and sclera are non-icteric and not injected. Cornea within normal limits. Periorbital areas with no swelling, redness, or edema. ENT: Nares patent. No nasal discharge, no septal abnormalities noted. Tympanic membranes are normal and external auditory canals are clear. Oropharynx with no redness, swelling, or masses, exudates, or evidence of obstruction, uvula midline. Mucous membranes moist. Neck: Trachea midline, no thyromegaly or masses palpated, and no cervical lymphadenopathy. Supple, full range of motion without nuchal rigidity, or vertebral point tenderness. No Meningismus. Chest/axilla: Normal chest wall appearance and motion. Nontender with no deformity. No lesions are appreciated. Respiratory: Lungs have equal breath sounds bilaterally, clear to auscultation and percussion. No rales, rhonchi or wheezes noted. No increased work of breathing, no retractions or nasal flaring. Abdomen/GI: Soft, non-tender, with normal bowel sounds. No distension or tympany. No guarding or rebound. No evidence of tenderness throughout. Back: No spinal tenderness. No costovertebral tenderness. Full range of motion. Skin: Warm, dry with normal turgor. Normal color with no rashes, no lesions, and no evidence of cellulitis. MS/ Extremity: Pulses equal, no cyanosis. Neurovascular intact. Full, normal range of motion. Psych: Awake, alert, with orientation to person, place and time. Behavior, mood, and affect are within normal limits. 01:26 Constitutional: The patient appears in obvious distress, mildly distressed. 01:26 Cardiovascular: Rate: tachycardic, Rhythm: regular, Pulses: Pulses are 4+ in bilateral radial, brachial, femoral, popliteal, posterior tibial and and dorsalis pedis arteries.. Heart sounds: normal, Edema: is not appreciated, JVD: is not appreciated. 01:26 Abdomen/GI: Inspection: abdomen appears normal, Bowel sounds: normal, Liver: no appreciated palpable abnormalities, Hernia: not appreciated. Vital Signs: 01:00 BP 109 / 75; Pulse 104; Resp 16; Pulse Ox 93% ; ea 01:05 BP 109 / 75; Pulse 109; Resp 19; Temp 98.3; Pulse Ox 95% ; Weight 76.66 kg; Height 5 ah ft. 6 in. (167.64 cm); 02:00 BP 105 / 88; Pulse 95; Resp 19; Pulse Ox 96% on R/A; ea 02:30 BP 102 / 55; Pulse 99; Resp 15; Pulse Ox 97% ; ea 03:36 BP 100 / 77; Pulse 110; Resp 20; Pulse Ox 97% ; ea 04:30 BP 115 / 59; Pulse 107; Resp 15; Pulse Ox 97% ; ea 05:00 BP 102 / 55; Pulse 99; Resp 15; Temp 98.3(TE); Pulse Ox 97% ; ea 01:05 Body Mass Index 27.28 (76.66 kg, 167.64 cm) MDM: 01:11 Patient medically screened. [facility] 01:28 Data reviewed: vital signs, nurses notes, lab test result(s), EKG, radiologic studies, [facility] CT scan, plain films. 02/18 01:17 Order name: Basic Metabolic Panel; Complete Time: 02:19 [facility] 02/18 01:17 Order name: CBC with Diff; Complete Time: 02:19 [facility] 02/18 01:17 Order name: LFT's; Complete Time: 02:19 [facility] 02/18 01:17 Order name: Magnesium; Complete Time: 02:19 [facility] 02/18 01:17 Order name: NT PRO-BNP; Complete Time: 02:19 [facility] 02/18 01:17 Order name: PT-INR; Complete Time: 02:19 [facility] 02/18 01:17 Order name: Troponin (emerg Dept Use Only); Complete Time: 02:19 [facility] 02/18 01:17 Order name: Blood Culture Adult (2) [facility] 02/18 01:20 Order name: XRAY Chest (1 view) [facility] 02/18 01:25 Order name: Urine Culture [facility] 02/18 01:25 Order name: CT Head Brain wo Cont [facility] 02/18 01:34 Order name: Lipase; Complete Time: 02:19 EDMS 02/18 02:55 Order name: Urine Dipstick--Ancillary (enter results); Complete Time: 03:53 mw2 02/18 01:17 Order name: EKG; Complete Time: 01:18 02/18 01:17 Order name: Cardiac monitoring; Complete Time: 01:18 02/18 01:17 Order name: EKG - Nurse/Tech; Complete Time: 01:18 02/18 01:17 Order name: IV Saline Lock; Complete Time: 01:02/18 01:17 Order name: Labs collected and sent; Complete Time: 01:02/18 01:17 Order name: O2 Per Protocol; Complete Time: :02/18 01:17 Order name: O2 Sat Monitoring; Complete Time: 01:02/18 01:25 Order name: Urine Dipstick-Ancillary (obtain specimen); Complete Time: 02:57 [facility] Administered Medications: 01:36 Drug: Thiamine 100 mg Route: IV; Rate: per protocol; Site: left forearm; 05:00 Follow up: Response: No adverse reaction ea 05:05 Follow up: Response: No adverse reaction; IV Status: Completed infusion ea 01:37 Drug: NS 0.9% 1000 ml Route: IV; Rate: 1 bolus; Site: left forearm; ea 05:00 Follow up: IV Status: Completed infusion; IV Intake: 1000ml ea 04:37 Drug: NS 0.9% 1000 ml Route: IV; Rate: 125 ml/hr; Site: right antecubital; [facility] 05:00 Follow up: IV Status: Infusion continued upon admission ea 04:37 Drug: Rocephin 1 grams Route: IV; Rate: per protocol; Site: right antecubital; [facility] 04:59 Follow up: Response: No adverse reaction; IV Status: Completed infusion; IV Intake: 10mlea Disposition: 02/19/20 03:59 Hospitalization ordered by Samir Pritchett for Inpatient Admission. Preliminary diagnosis are Dementia in other diseases classified elsewhere, Altered mental status, unspecified, Unspecified kidney failure, Type 2 diabetes mellitus, Volume depletion - dehydration. - Bed requested for Telemetry/MedSurg (Inpatient). - Status is Inpatient Admission. ea - Condition is Fair. - Problem is new. - Symptoms have improved. Signatures: Dispatcher [employer] EDRoscoe Zacarias MD MD cha Garcia, Cindy, RN RN cg Bryson, James, RN RN [facility] Susanna Montgomery RN RN ea Harris, Amy RN RN Corrections: (The following items were deleted from the chart) 01:33 01:26 LIPASE+C.LAB.BRZ ordered. EDOK EDMS 04:28 03:59 Hospitalization Ordered by Samir Pritchett MD for Inpatient Admission. Preliminary cg diagnosis is Dementia in other diseases classified elsewhere; Altered mental status, unspecified; Unspecified kidney failure; Type 2 diabetes mellitus; Volume depletion - dehydration. Bed requested for Telemetry/MedSurg (Inpatient). Status is Inpatient Admission. Condition is Fair. Problem is new. Symptoms have improved. [facility] 04:31 04:28 02/19/2020 03:59 Hospitalization Ordered by Samir Pritchett MD for Inpatient cg Admission. Preliminary diagnosis is Dementia in other diseases classified elsewhere; Altered mental status, unspecified; Unspecified kidney failure; Type 2 diabetes mellitus; Volume depletion - dehydration. Bed requested for Telemetry/MedSurg (Inpatient). Status is Inpatient Admission. Condition is Fair. Problem is new. Symptoms have improved. cg 05:30 04:31 02/19/2020 03:59 Hospitalization Ordered by Samir Pritchett MD for Inpatient ea Admission. Preliminary diagnosis is Dementia in other diseases classified elsewhere; Altered mental status, unspecified; Unspecified kidney failure; Type 2 diabetes mellitus; Volume depletion - dehydration. Bed requested for Telemetry/MedSurg (Inpatient). Status is Inpatient Admission. Condition is Fair. Problem is new. Symptoms have improved. cg
[2020-02-19] MEDS ORDERED: ALBUTEROL 2.5 MG/3 ML NEB SOL NEB PRN (04:13)
[2020-02-19] MEDS ORDERED: MORPHINE 2 MG/ML SYR IV PRN (04:13)
[2020-02-19] MEDS ORDERED: ONDANSETRON 4 MG/2 ML VIAL IV PRN (04:13)
--- NOTE | 2020-02-19 04:13 | P.HP ---
Certification for Inpatient Patient admitted to: Observation With expected LOS: <2 Midnights Patient will require the following post-hospital care: Longterm Practitioner: I am a practitioner with admitting privileges, knowledge of patient current condition, hospital course, and medical plan of care. Services: Services provided to patient in accordance with Admission requirements found in Title 42 Section 412.3 of the Code of Federal Regulations Patient History Date of Service: 02/19/20 Reason for admission: Worsening altered mental status History of Present Illness: 79-year-old male with past medical history of HTN, diabetes mellitus, Parkinson' s disease, Alzheimer's dementia , reside in an assisted-living facility and very confused and incoherent at baseline developed worsening confusion, decreased p.o. intake and weakness . Dementia unit sent patient to the ER tonight due to not eating for last 1 week . states she was not informed of any changes in his condition until this pm . No report of fever. Patient is obtunded and unable to give history . He was brought to the ER today because of worsening symptoms. On arrival in the ED his blood pressure was borderline at 109/50 with elevated heart rate and clinical signs of dehydration. He is being admitted for IV fluid Allergies codeine Allergy (Verified 02/19/20 05:30) restless Home medications list reviewed: No Home Medications: Amlodipine Besylate/Benazepril [Amlodipine-Benazepril 5-10 mg] 1 cap PO DAILY Aspirin [Lo-Dose Aspirin EC] 1 tab PO DAILY 02/19/20 Celecoxib 1 cap PO DAILY 02/19/20 Ergocalciferol (Vitamin D2) [Vitamin D2] 1 cap PO SEECOM 02/19/20 Imiquimod 1 mercedez TOP SEECOM 02/19/20 Metformin HCl 1 tab PO DAILY 02/19/20 OLANZapine [Zyprexa Zydis] 1 tab PO BID 02/19/20 Rivastigmine Tartrate [Exelon*] 3 mg PO BID 02/19/20 Tamsulosin HCl 1 tab PO DAILY 02/19/20 Trazodone [Desyrel*] 1 tab PO BEDTIME 02/19/20 - Past Medical/Surgical History -: Hypertension -: Diabetes mellitus -: Parkinson's -: Dementia -: unknown - Family History Family History: Reviewed- Non-Contributory - Family History Father -: Hypertension, Other (see notes) Notes: triple bypass Mother -: Other (see notes) Notes: Alzheimers Uncle -: Cancer - Social History Smoking therapy provided: No Alcohol use: No CD- Drugs: No Caffeine use: No Place of Residence: Home Review of Systems is unable to be obtained Physical Examination - Physical Exam General: Confused, Delirious, Other (obtunded ) HEENT: Atraumatic, Normocephalic, Other (Dry oral mucosa) Neck: Supple, 2+ carotid pulse no bruit Respiratory: Clear to auscultation bilaterally, Normal air movement Cardiovascular: No edema, Regular rate/rhythm, Normal S1 S2 Gastrointestinal: Normal bowel sounds, Soft and benign, Non-distended Musculoskeletal: No clubbing, No swelling Neurological: Other (obtunded ), Dementia - Studies Laboratory Data (last 24 hrs) 02/19/20 01:25: Lipase Cancelled 02/19/20 01:20: PT 12.2, INR 1.03 02/19/20 01:20: WBC 11.8 H, Hgb 13.9, Hct 43.4, Plt Count 323 02/19/20 01:20: Sodium 143, Potassium 4.7, BUN 42 H, Creatinine 1.58 H, Glucose 127 H, Magnesium 2.0, Total Bilirubin 0.8, AST 14 L, ALT 17, Alkaline Phosphatase 95, Lipase 52 L Imagings Data: Chest x-ray-no acute infiltrate Head CT - no acute intracranial pathology Assessment and Plan - Problems (Diagnosis) (1) Acute renal failure Current Visit: Yes Status: Acute (2) Dehydration Current Visit: Yes Status: Acute (3) Dementia Current Visit: Yes Status: Acute (4) Diabetes mellitus Current Visit: Yes Status: Acute Plan to discharge in: 24 Hours - Advance Directives Does patient have a Living Will: Yes Does patient have a Durable POA for Healthcare: Yes Physician Review: Patient Assessed, Agree with Above Assessment and Plan Physician Review Additional Text: # acute renal failure-likely due to pre renal azotemia. -obtain urine sodium/creatinine -start gentle IV fluid with D5 NS with potassium -avoid nephrotoxins - ##Hypertension-controlled, hold blood pressure medications #Diabetes mellitus to-insulin sliding scale for now #Dementia-with worsening delirium/metabolic encephalopathy -obtain a UA to rule out UTI -may need Geodon p.r.n. #Advanced directive- discuss with family - DNR Time Spent Managing Pts Care (In Minutes): 60
[2020-02-19] MEDS ORDERED: HYDRALAZINE HCL 20 MG/ML VIAL IV PRN (04:16)
[2020-02-19] MEDS ORDERED: CEFTRIAXONE/SWI 1gm 1 GM/10 ML SYR ONE (04:35)
[2020-02-19] MEDS ORDERED: Ringers Lactate 1,000 ML IV SCH (05:00)
[2020-02-19] MEDS ORDERED: ZIPRASIDONE MESYLA 20 MG/VIAL IM PRN (06:22)
[2020-02-19] MEDS ORDERED: WATER FOR INJ,STERILE 10 ML IM PRN (06:22)
[2020-02-19 06:57] VITALS: BMI 22.3
[2020-02-19] MEDS ORDERED: PANTOPRAZOLE 40MG TABLET PO SCH (07:30)
[2020-02-19] MEDS: INSULIN -REGULAR HUMAN 50 UNIT/0.5 ML ML SQ SCH ×2 (07:30→11:30)
[2020-02-19 07:36] LABS: Potassium 4.2 mmol/L (3.5-5.1)
[2020-02-19] MEDS ORDERED: ENOXAPARIN 40 MG/0.4 ML SQ SCH (09:00)
--- NOTE | 2020-02-19 10:21 | RAD REPORT ---
EXAM DESCRIPTION: Rigoberto Single View02/19/2020 1:50 am CLINICAL HISTORY: Chest pain COMPARISON: 2019 FINDINGS: The lungs appear clear of acute infiltrate. The heart is normal size IMPRESSION: No acute abnormalities displayed
[2020-02-19 13:44] VITALS: O2SAT 94
[2020-02-19 14:17] VITALS: BP 125/76; TEMP 97.7
--- NOTE | 2020-02-19 20:55 | RAD REPORT ---
EXAM DESCRIPTION: CT - Head Brain Wo Cont - 02/19/2020 3:32 am CLINICAL HISTORY: Declining state;Confused COMPARISON: None. TECHNIQUE: CT HEAD WITHOUT IV CONTRAST on 02/19/2020 1:25 AM CDT This exam was performed according to our departmental dose-optimization program, which includes autom ated exposure control, adjustment of the mA and/or kV according to patient size and/or use of iterati ve reconstruction technique. FINDINGS: There is no acute hemorrhage, mass effect or midline shift. Palm-white differentiation is preserved. There is no hydrocephalus. There is no significant volume loss for age. There are mild pat dawit hypodensities within the periventricular and subcortical white matter, consistent with microangio pathic ischemic changes. The calvarium is intact. Orbits and globes are unremarkable. The paranasal sinuses are clear. Mastoid air cells are clear. IMPRESSION: No acute intracranial findings. Electronically signed by: Hipolito Riley MD 02/19/2020 2:31 AM CDT Due to temporary technical issues with the PACS/Fluency reporting system, reports are being signed by the in house radiologist as a courtesy to ensure prompt reporting. The interpreting radiologist is f ully responsible for the content of the report.
--- NOTE | 2020-02-19 22:14 | DS ---
Date of Discharge: 02/19/2020 Consultants: None. Discharge Diagnoses: 1.Acute kidney injury. 2.Acute dehydration. 3.Dementia, Alzheimer's type, advanced, without behavioral disturbance. 4.Diabetes mellitus type 2, non-insulin requiring, with hyperglycemia. Hospital Course: Patient is a 79-year-old male with history of hypertension, diabetes, Parkinson's, and Alzheimer's, comes in from memory unit for confusion, worse than his usual, decreased p.o. intake and weakness. Patient was found to be dehydrated, had increased creatinine level at 1.58. He was s tarted on IV fluids. The patient's urine showed negative nitrite, negative leukocyte esterase. He w as afebrile. His blood pressure improved with IV fluids. The patient's chest x-ray was negative. H is head CT scan did not show any acute abnormalities. Patient's repeat labs showed improvement and n ormalization in his kidney function. Dr. Stevens with Nephrology was consulted. Case was di scussed with her. Patient seemed to be back to baseline with improved blood pressure. They will nee d to push fluids at the facility. He may need to hold his blood pressure medications for blood press ure less than 120 systolic. Patient was then cleared for discharge from financial sales consultant's standpoint and was sent back to the nursing facility in a stable condition. Activity: Fall precautions. Diet: Diabetic diet. Followup: Follow up with primary care physician in 2-3 days. Return to ER for worsening condition. Hold blood pressure medications for systolic less than 120. Return to ER for worsening condition. Physical Examination: General: Asleep, but arousable at his baseline according to the . CV: S1, S2. Respiratory: Moving air well bilaterally. Abdomen: Abdomen is soft, nontender, nondistended. Positive bowel sounds. Extremities: No clubbing, cyanosis, or edema. Neuro: Moves all 4 extremities, nonverbal. SA/MODL Voice ID: [id number] Report ID: [id number]
--- NOTE | 2020-02-20 09:00 | EKG ---
Test Date: 2020-02-19 Test Time: 01:17:34 Circular [place]yer Stone: FIDEL MEASUREMENT RESULTS: Intervals: Rate: 104 MA: 162 QRSD: 76 QT: 390 QTc: 512 Tuttle: P: 35 MA: 162 QRS: 22 T: 66 INTERPRETIVE STATEMENTS: Sinus tachycardia with premature supraventricular complexes with occasional premature ventricular complexes Otherwise normal ECG Compared to ECG 02/11/2019 19:51:25 Atrial premature complex(es) now present Electronically Signed On 02-20-20 08:57:57 CDT by Eusebio Hernandez
--- NOTE | 2020-02-20 09:15 | CON ---
Date of Consultation: 02/19/2020 Chief Complaint: Acute kidney injury, prerenal azotemia. History Of Present Illness: Patient was admitted to the hospital because of generalized weakness, confusion. Patient although has history of Alzheimer dementia. Parkinson disease, hypertension, diabetes mellitus, diabetic kidney disease, hypertensive kidney disease. He was taking a nonsteroidal anti- inflammatory medication, which was stopped. He has history of diabetes and is taking medication for bladder outlet obstruction. Patient was evaluated in the emergency room, he was brought to the hospital because of poor p.o. intake. Patient is obtunded and he has underlying dementia and he cannot provide review of systems. Review of Systems: Unobtainable due to the patient's condition. Past Medical History: Diabetes mellitus, hypertension, Parkinson disease, and dementia. Social History: Negative for tobacco, alcohol, or illicit drugs. Family History: Mother has Alzheimer's. Father has coronary artery disease and bypass. Physical Examination: General: Patient is confused and obtunded. Eyes: Anicteric sclerae. EOMI. Neck: Supple. No bruits. Lungs: Clear to auscultation bilaterally. No rhonchi. No crackles. Heart: S1, S2. No pericardial friction rub. Abdomen: Soft, benign, nontender. No rebound. No guarding. Extremities: No swelling. No clubbing. No cyanosis. Neurological: Does not follow commands. He remains obtunded. Skin: warm and dry , no oozing Laboratory Data: Chest x-ray, no acute infiltrate. CT scan of the head, no acute intracranial pathology. WBC 11.8, hemoglobin 13.9, platelet count is 323. Sodium is 146, potassium 4.0, chloride 111, CO2 of 26, BUN 37, creatinine 1.23, glucose 122, calcium 8.6, magnesium 2.0, lipase 52. Impression And Plan: 1. Acute kidney injury, prerenal azotemia. Avoid nonsteroidal anti- inflammatory medication. Continue Iv fluids to treat acute kidney injury and prevent renal hypoperfusion. 2. Patient may need outpatient workup for possible chronic kidney disease. He will need to have a kidney ultrasound. 3. Dehydration. Continue IV fluids. 4. Hypertension. Continue blood pressure medication. Avoid nephrotoxic medication. I recommend to stop metformin. Patient may have an element of diabetic kidney disease. He will need to follow up outpatient for diabetic kidney disease. Patient is not a good candidate for metformin. EB/MODL Voice ID: [id number] Report ID: [id number] JESSICA
== END 2020-02-19 15:19 | disposition home or self-care (01) ==
LOC: ER 01:00 → UNDOADMOB 04:15 → ERHOLD 04:15 → 2ND 05:01 → ERHOLD 05:01 → UNDODISOB 15:19
PROVIDERS: ADMIT Internal Medicine; ATTEND Family Medicine
DX: N17.9 Acute kidney failure, unspecified (principal); E86.0 Dehydration; E11.65 Type 2 diabetes mellitus with hyperglycemia; G30.9 Alzheimer's disease, unspecified; F02.80 Dementia in other diseases classified elsewhere, unspecified severity, without behavioral disturbance, psychotic disturbance, mood disturbance, and anxiety; G20 Parkinson's disease; I10 Essential (primary) hypertension; N32.0 Bladder-neck obstruction; R39.2 Extrarenal uremia; I49.3 Ventricular premature depolarization; R00.0 Tachycardia, unspecified; E78.5 Hyperlipidemia, unspecified; Z79.82 Long term (current) use of aspirin; Z79.84 Long term (current) use of oral hypoglycemic drugs; Z79.899 Other long term (current) drug therapy
CPT/HCPCS: 96365; 96368; 93005; 87040 ×2; 87088; 85025; 80048 ×3; 36415; 83735; 85610; 82947 ×3; 80076; 81003; 84484; 83690; 83880; 70450; 71045; 51702; 99285; 96366; J3411; J1650; J0696; J7120; J7030 ×2; G0378 ×2; 87086

== ENCOUNTER 2020-02-20 | Emergency (ER) | payer OTHER ==
--- OUTSIDE RECORDS SUMMARY | 2020-02-20 07:21 | XMS REPORT ---
:1940 [facility] Address [address] [place] [address] Care Team Providers Name Role Phone MARLA [...] (BEAKER) 128 mg/dL 70-110 : TESTED AT [address] (test bjfm=7613) [place], [id number]: Academic Counselor/Fiber Optic Assembler [id number] for Jackeline Colon POCT-GLUCOSE [id number] 17:44:00 Test Item Value Reference Range Comments POC-GLUCOSE METER (BEAKER) 194 mg/dL 70-110 : TESTED AT [address] (test fbvs=6061) [facility], [address]: Academic Counselor/Fiber Optic Assembler [id number] for DUKES, NINI POCT-GLUCOSE [id number] 12:42:00 Test Item Value Reference Range Comments POC-GLUCOSE METER (BEAKER) 190 mg/dL 70-110 : TESTED AT [address] (test yldp=6721) [facility], [address]: Academic Counselor/Fiber Optic Assembler [id number] for DUKES, NINI POCT-GLUCOSE [id number] 09:24:00 Test Item Value Reference Range Comments POC-GLUCOSE METER (BEAKER) 159 mg/dL 70-110 : TESTED AT [address] (test uuel=6225) [facility], [address]: Academic Counselor/Fiber Optic Assembler [id number] for DUKES, NINI BASIC METABOLIC [id number] 07:10:00 Test Item Value Reference Range Comments SODIUM (BEAKER) (test 138 meq/L 136-145 yfsj=836) POTASSIUM (BEAKER) (test 3.7 meq/L 3.5-5.1 lpgk=698) CHLORIDE (BEAKER) (test 103 meq/L 98-107 ibcs=124) CO2 (BEAKER) (test 26 meq/L 22-29 xcob=117) BLOOD UREA NITROGEN 14 mg/dL 7-21 (BEAKER) (test ufrb=619) CREATININE (BEAKER) (test 1.21 mg/dL 0.57-1.25 rvju=372) GLUCOSE RANDOM (BEAKER) 156 mg/dL 70-105 (test anfa=725) CALCIUM (BEAKER) (test 9.2 mg/dL 8.4-10.2 zesr=763) EGFR (BEAKER) (test 58 mL/min/1.73 sq m ESTIMATED GFR IS NOT nkkg=5423) ACCURATE CREATININE CLEARANCE IN PREDICTING GLOMERULAR FILTRATION RATE. ESTIMATED GFR IS NOT APPLICABLE FOR DIALYSIS PATIENTS. HEMOGLOBIN [id number] 06:47:00 Test Item Value Reference Range Comments HEMOGLOBIN A1C (BEAKER) (test pjtc=275) 7.7 % 4.3-6.1 CBC (HEMOGRAM ONLY)2019-10-31 05:16:00 Test Item Value Reference Range Comments WHITE BLOOD CELL COUNT (BEAKER) (test lenr=067) 6.8 K/ L 3.5-10.5 RED BLOOD CELL COUNT (BEAKER) (test ibhu=922) 4.28 M/ L 4.63-6.08 HEMOGLOBIN (BEAKER) (test fhaw=822) 13.0 GM/DL 13.7-17.5 HEMATOCRIT (BEAKER) (test lequ=499) 39.4 % 40.1-51.0 MEAN CORPUSCULAR VOLUME (BEAKER) (test qbcc=495) 92.1 fL 79.0-92.2 MEAN CORPUSCULAR HEMOGLOBIN (BEAKER) (test 30.4 pg 25.7-32.2 vmqg=293) MEAN CORPUSCULAR HEMOGLOBIN CONC (BEAKER) (test 33.0 GM/DL 32.3-36.5 kkip=440) RED CELL DISTRIBUTION WIDTH (BEAKER) (test 13.0 % 11.6-14.4 qtob=211) PLATELET COUNT (BEAKER) (test tpdi=294) 288 K/CU MM 150-450 MEAN PLATELET VOLUME (BEAKER) (test yfzm=045) 9.6 fL 9.4-12.4 NUCLEATED RED BLOOD CELLS (BEAKER) (test 0 /100 WBC 0-0 yzfx=151) POCT-GLUCOSE [id number] 21:14:00 Test Item Value Reference Range Comments POC-GLUCOSE METER (BEAKER) 162 mg/dL 70-110 : TESTED AT [facility] [address] [place] [address] (test cqhn=0572) [facility], [address]: Academic Counselor/Fiber Optic Assembler [id number] for SUHAIL TREVINO POCT-GLUCOSE [id number] 17:14:00 Test Item Value Reference Range Comments POC-GLUCOSE METER (BEAKER) 160 mg/dL 70-110 : TESTED AT [address] (test uabg=5430) [facility], [address]: Academic Counselor/Fiber Optic Assembler [id number] for KOLLEADE, RITCHEL URINALYSIS W/ [id number] 13:34:00 Test Item Value Reference Range Comments COLOR (BEAKER) (test oykf=189) Yellow CLARITY (BEAKER) (test bjxs=044) Clear SPECIFIC GRAVITY UA (BEAKER) (test osnu=206) 1.017 1.001-1.035 PH UA (BEAKER) (test qicv=612) 6.0 5.0-8.0 PROTEIN UA (BEAKER) (test zxdi=449) Negative Negative GLUCOSE UA (BEAKER) (test imax=071) Negative Negative KETONES UA (BEAKER) (test xslw=301) Negative Negative BILIRUBIN UA (BEAKER) (test rews=170) Negative Negative BLOOD UA (BEAKER) (test zgdf=398) Negative Negative NITRITE UA (BEAKER) (test oswp=936) Negative Negative LEUKOCYTE ESTERASE UA (BEAKER) (test aelp=150) Small Negative UROBILINOGEN UA (BEAKER) (test wmgb=991) 0.2 mg/dL 0.2-1.0 RBC UA (BEAKER) (test dihj=814) < /HPF WBC UA (BEAKER) (test ysjq=067) 1 /HPF BACTERIA (BEAKER) (test gdcw=012) Occasional MUCUS (BEAKER) (test zdhq=1810) Occasional SQUAMOUS EPITHELIAL (BEAKER) (test sird=742) 1 /HPF CASTS (BEAKER) (test byqm=0248) 1 /LPF SOURCE(BEAKER) (test rzvk=7802) RAD, CHEST, PA OR AP, 1 [id number] 12:57:00Reason for exam:->chest pain Should this be [...] Culp Verified Date/Time: 10/30/2019 12:57:30 Reading Location: [address] Body Reading Room TROPONIN [id number] 12:37:00 Test Item Value Reference Range Comments TROPONIN I (BEAKER) (test wsoq=659) < ng/mL 0.00-0.03 Troponin I (TnI) levels [...] acidosis, acute neurological disease, and persistent tachyarrhythmia.C-REACTIVE [id number] 12:34:00 Test Item Value Reference Range Comments C-REACTIVE PROTEIN (BEAKER) (test ebym=294) 0.17 mg/dL 0.00-0.50 [id number] 12:31:00 Test Item Value Reference Range Comments MAGNESIUM (BEAKER) (test 1.9 mg/dL 1.6-2.6 Specimen slightly hemolyzed etbn=640) [id number] 12:31:00 Test Item Value Reference Range Comments PHOSPHORUS (BEAKER) (test 3.2 mg/dL 2.3-4.7 Specimen slightly hemolyzed xabh=880) BASIC METABOLIC [id number] 12:31:00 Test Item Value Reference Range Comments SODIUM (BEAKER) (test 138 meq/L 136-145 oqvo=669) POTASSIUM (BEAKER) (test 4.9 meq/L 3.5-5.1 Specimen slightly eyhr=373) hemolyzed CHLORIDE (BEAKER) (test 106 meq/L 98-107 blve=704) CO2 (BEAKER) (test 23 meq/L 22-29 jixo=612) BLOOD UREA NITROGEN 16 mg/dL 7-21 (BEAKER) (test tgxf=554) CREATININE (BEAKER) 1.38 mg/dL 0.57-1.25 Specimen slightly (test abgk=863) hemolyzed GLUCOSE RANDOM (BEAKER) 122 mg/dL 70-105 (test dvaj=728) CALCIUM (BEAKER) (test 9.5 mg/dL 8.4-10.2 pnnn=622) EGFR (BEAKER) (test 50 mL/min/1.73 sq m INSUFFICIENT CLINICAL DATA shdd=8426) TO CALCULATE ESTIMATED GFR. HEPATIC FUNCTION [id number] 12:31:00 Test Item Value Reference Range Comments TOTAL PROTEIN (BEAKER) (test 6.9 gm/dL 6.0-8.3 Specimen slightly hemolyzed ggfa=006) ALBUMIN (BEAKER) (test 3.9 g/dL 3.5-5.0 Specimen slightly hemolyzed hrgw=0005) BILIRUBIN TOTAL (BEAKER) (test 0.6 mg/dL 0.2-1.2 Specimen slightly hemolyzed xqlt=931) BILIRUBIN DIRECT (BEAKER) (test 0.2 mg/dL 0.1-0.5 Specimen slightly hemolyzed pvai=280) ALKALINE PHOSPHATASE (BEAKER) 86 U/L 40-150 (test filf=245) AST (SGOT) (BEAKER) (test 15 U/L 5-34 Specimen slightly hemolyzed lckc=513) ALT (SGPT) (BEAKER) (test 10 U/L 6-55 Specimen slightly hemolyzed ffoq=075) [id number] 12:29:00 Test Item Value Reference Range Comments PROTIME (BEAKER) (test yums=489) 12.6 seconds 11.9-14.2 INR (BEAKER) (test zprg=145) 1.0 <=5.9 PARTIAL THROMBOPLASTIN TIME (BEAKER) (test 30.0 seconds 22.5-36.0 ujde=489) Effective 04/28/2019: PT Reference Range ChangeNew: 11.9-14.2 Previous: 11.7- 14.7RECOMMENDED COUMADIN/WARFARIN INR THERAPY RANGESSTANDARD DOSE: 2.0-3.0 Includes: PROPHYLAXIS for venous thrombosis, systemic embolization; TREATMENT for venous thrombosis and/or pulmonary embolus.HIGH RISK: Target INR is2.5-3.5 for patients wiht mechanical heart valves.CT, BRAIN, WITHOUT [id number] 12:23:00Reason for exam:->ALTERED MENTAL STATUSworsening over the [...] 2018 12:23 PMCBC W/PLT COUNT & AUTO [id number] 12:09:00 Test Item Value Reference Range Comments WHITE BLOOD CELL COUNT (BEAKER) (test jyoc=350) 7.2 K/ L 3.5-10.5 RED BLOOD CELL COUNT (BEAKER) (test rrmn=770) 4.25 M/ L 4.63-6.08 HEMOGLOBIN (BEAKER) (test mnhp=976) 13.1 GM/DL 13.7-17.5 HEMATOCRIT (BEAKER) (test mzyp=427) 39.6 % 40.1-51.0 MEAN CORPUSCULAR VOLUME (BEAKER) (test unyx=022) 93.2 fL 79.0-92.2 MEAN CORPUSCULAR HEMOGLOBIN (BEAKER) (test 30.8 pg 25.7-32.2 hkry=621) MEAN CORPUSCULAR HEMOGLOBIN CONC (BEAKER) (test 33.1 GM/DL 32.3-36.5 dmni=684) RED CELL DISTRIBUTION WIDTH (BEAKER) (test 12.9 % 11.6-14.4 dnik=990) PLATELET COUNT (BEAKER) (test kcix=588) 286 K/CU MM 150-450 MEAN PLATELET VOLUME (BEAKER) (test fwku=352) 10.0 fL 9.4-12.4 NUCLEATED RED BLOOD CELLS (BEAKER) (test 0 /100 WBC 0-0 xzpq=103) NEUTROPHILS RELATIVE PERCENT (BEAKER) (test 58 % jqqb=909) LYMPHOCYTES RELATIVE PERCENT (BEAKER) (test 24 % ssrd=224) MONOCYTES RELATIVE PERCENT (BEAKER) (test 13 % pdte=937) EOSINOPHILS RELATIVE PERCENT (BEAKER) (test 4 % umbr=846) BASOPHILS RELATIVE PERCENT (BEAKER) (test 1 % gufp=005) NEUTROPHILS ABSOLUTE COUNT (BEAKER) (test 4.17 K/ L 1.78-5.38 nugb=731) LYMPHOCYTES ABSOLUTE COUNT (BEAKER) (test 1.72 K/ L 1.32-3.57 uhea=219) MONOCYTES ABSOLUTE COUNT (BEAKER) (test 0.90 K/ L 0.30-0.82 apqj=730) EOSINOPHILS ABSOLUTE COUNT (BEAKER) (test 0.32 K/ L 0.04-0.54 aydd=500) BASOPHILS ABSOLUTE COUNT (BEAKER) (test 0.05 K/ L 0.01-0.08 fnhe=867) IMMATURE GRANULOCYTES-RELATIVE PERCENT (ReelioAKER) 1 % 0-1 (test ubgf=9399)
--- OUTSIDE RECORDS SUMMARY | 2020-02-20 07:21 | XMS REPORT ---
[...] Status Dosage System Date Date Tamsulosin HCl [facility] 01918498542 0.4 MG Orally Active 1 capsule Once a day Metformin HCl [facility] 03194006838 1000 MG Orally Active 1 tablet Once a day with a meal Esomeprazole [facility] 03059365488 40 MG Orally Active 1 capsule Magnesium Once a day Rivastigmine ND 82197759353 4.6 MG/24HR Active 1 patch to Transdermal skin Once a day Atorvastatin [facility] 58959590554 20 MG Orally Active 1 tablet Calcium Once a day Vitamin B12 ND 73262672943 1000 MCG Orally Active 1 tablet Once a day Folic Acid [facility] 88620392287 400 MCG Orally Active 1 tablet Once a day Memantine HCl [facility] 43024407135 5 (28)-10 (21) Active as MG Orally directed Tadalafil ND 62346493264 20 MG Orally Active 1 tablet Ibandronate ND 68521046782 150 MG Orally Active 1 tablet Sodium Multi For Him ND 44553075123 - Orally Active as directed Aspir-81 ND 50380872156 81 MG Orally Active 1 tablet Once a day Amlodipine ND 80493492228 5-10 MG Orally Active as Besy-Benazepril directed HCl Ergocalciferol [facility] 95064010035 56777 UNIT Active 1 capsule Orally Results No Known Results Summary Purpose eClinicalWorks Submission
--- NOTE | 2020-02-20 08:15 | EDPHYS ---
Physician Documentation [facility] Name: Boris Grimaldo Age: 79 yrs Sex: Male : 1940 Arrival Date: 02/20/2020 Time: 07:26 Bed 5 Private MD: ED Physician Cyrus Gupta HPI: 02/19 07:43 This 79 yrs old Male presents to ER via Unassigned with complaints of kdr possible fever. 07:43 Apparently the detention staff took the patient's temperature on rounds and it was kdr noted to be 99.8 temporal. EMS had a similar reading. The patient had been discharged from this hospital yesterday. The detention reports no other unusual or new s/s. Onset: The symptoms/episode began/occurred just prior to arrival. Severity of symptoms: At their worst the symptoms were The patient has no new s/s or complaints. The patient has not experienced similar symptoms in the past. The patient has been recently seen by a physician: The patient has been recently been admitted at [facility], was discharged yesterday. Historical: - Allergies: 07:55 Codeine; jl7 - Home Meds: 07:55 amlodipine 5 mg tab [Active]; aspirin 81 mg Oral TbEC [Active]; Celecoxib Oral jl7 [Active]; ergocalciferol (vitamin D2) oral oral [Active]; imiquimod topical topical [Active]; Metformin Oral [Active]; olanzapine oral oral [Active]; rivastigmine tartrate 3 mg oral cap [Active]; tamsulosin 0.4 mg oral cp24 [Active]; Trazodone Oral [Active]; - PMHx: 07:55 Alzheimers; Dementia; Diabetes - NIDDM; Hyperlipidemia; Hypertension; Parkinsons; jl7 - PSHx: 07:55 Unable to obtain; jl7 - Immunization history:: Adult Immunizations up to date. - Social history:: Smoking status: Patient denies any tobacco usage or history of. ROS: 07:43 Constitutional: Unbale to obtain due to dementia kdr 07:43 Unable to obtain ROS due to altered mental status, baseline dementia. Exam: 07:43 Constitutional: This is a well developed, well nourished patient who is awake, alert, kdr and in no acute distress. Head/Face: Normocephalic, atraumatic. Eyes: Pupils equal round and reactive to light, extra-ocular motions intact. Lids and lashes normal. Conjunctiva and sclera are non-icteric and not injected. Cornea within normal limits. Periorbital areas with no swelling, redness, or edema. Neck: Trachea midline, no thyromegaly or masses palpated, and no cervical lymphadenopathy. Supple, full range of motion without nuchal rigidity, or vertebral point tenderness. No Meningismus. Chest/axilla: Normal chest wall appearance and motion. Nontender with no deformity. No lesions are appreciated. Cardiovascular: Regular rate and rhythm with a normal S1 and S2. No gallops, murmurs, or rubs. Normal PMI, no JVD. No pulse deficits. Respiratory: Lungs have equal breath sounds bilaterally, clear to auscultation and percussion. No rales, rhonchi or wheezes noted. No increased work of breathing, no retractions or nasal flaring. Abdomen/GI: Soft, non-tender, with normal bowel sounds. No distension or tympany. No guarding or rebound. No evidence of tenderness throughout. Back: No spinal tenderness. No costovertebral tenderness. Full range of motion. Skin: Warm, dry with normal turgor. Normal color with no rashes, no lesions, and no evidence of cellulitis. MS/ Extremity: Pulses equal, no cyanosis. Neurovascular intact. Full, normal range of motion. 07:43 Neuro: Orientation: Not oriented to person, place, time, situation, The patient is moving all extremities but is unable to follow commands. Vital Signs: 07:30 BP 140 / 89; Pulse 87; Resp 17; Temp 98.6; Pulse Ox 97% ; Pain 0/10; jl7 MDM: 07:43 Data reviewed: vital signs, nurses notes. Counseling: I had a detailed discussion with kdr the patient and/or guardian regarding: the historical points, exam findings, and any diagnostic results supporting the discharge/admit diagnosis, the need for outpatient follow up. 08:11 ED course: D/w Dr. Preston who came to the ED and evaluated the patient. he stated that kdr the patient looked better and more awake today then on discharge yesterday. No further w/u was deemed necessary at this time in the ED. halfway will be advised to consider consulting the ED and the discharging physician prior to initiating transfer back to the ED. 08:14 Patient medically screened. kdr Administered Medications: No medications were administered Disposition: 02/20/20 08:14 Discharged to Home. Impression: Dementia in other diseases classified elsewhere, Adult failure to thrive. - Condition is Stable. - Discharge Instructions: Failure to Thrive, Adult, Giho-hi-Ioii, Dementia, Jhle-hv-Hqup. - Medication Reconciliation Form, Thank You Letter form. - Follow up: Private Physician; When: 2 - 3 days; Reason: If symptoms return, Further diagnostic work-up, Recheck today's complaints, Continuance of care, Re-evaluation by your physician. - Problem is an ongoing problem. - Symptoms are unchanged. Signatures: Cyrus Gupta MD MD kdr Lauren Joseph RN RN jl7 Corrections: (The following items were deleted from the chart) 08:43 08:14 02/20/2020 08:14 Discharged to Home. Impression: Dementia in other diseases jl7 classified elsewhere; Adult failure to thrive. Condition is Stable. Forms are Medication Reconciliation Form, Thank You Letter, Antibiotic Education, Prescription Opioid Use. Follow up: Private Physician; When: 2 - 3 days; Reason: If symptoms return, Further diagnostic work-up, Recheck today's complaints, Continuance of care, Re-evaluation by your physician. Problem is an ongoing problem. Symptoms are unchanged. kdr
--- NOTE | 2020-02-20 08:15 | ER ---
Nurse's Notes [facility] Name: Boris Grimaldo Age: 79 yrs Sex: Male : 1940 Arrival Date: 02/20/2020 Time: 07:26 Bed 5 Private MD: Diagnosis: Dementia in other diseases classified elsewhere;Adult failure to thrive Presentation: 02/19 07:30 Chief complaint: EMS states: Pt was discharged yesterday from the floor, nurse checked jl7 his temp this morning and it was 99.8 and she reported he has a cough. No cough noted, 96.7 axillary temperature. Coronavirus screen: Patient denies fever greater than 100.4F, cough, shortness of breath, or difficulty breathing. Proceed with normal triage process. Ebola Screen: No symptoms or risks identified at this time. Initial Sepsis Screen: Does the patient meet any 2 criteria? No. Patient's initial sepsis screen is negative. Does the patient have a suspected source of infection? No. Patient's initial sepsis screen is negative. Risk Assessment: Do you want to hurt yourself or someone else? Patient reports no desire to harm self or others. Onset of symptoms is unknown. 07:30 Method Of Arrival: EMS: [facility] jl7 07:30 Acuity: BABATUNDE 5 jl7 07:34 Coronavirus screen:. iw Triage Assessment: 07:55 General: Appears in no apparent distress. uncomfortable, Behavior is calm. Pain: Denies jl7 pain. Neuro: Level of Consciousness is awake, alert, obeys commands. Cardiovascular: Patient's skin is warm and dry. Respiratory: Airway is patent Respiratory effort is even, unlabored, Respiratory pattern is regular, symmetrical, Breath sounds are clear bilaterally. Derm: Skin is pink, warm \\T\\ dry. Historical: - Allergies: 07:55 Codeine; jl7 - Home Meds: 07:55 amlodipine 5 mg tab [Active]; aspirin 81 mg Oral TbEC [Active]; Celecoxib Oral jl7 [Active]; ergocalciferol (vitamin D2) oral oral [Active]; imiquimod topical topical [Active]; Metformin Oral [Active]; olanzapine oral oral [Active]; rivastigmine tartrate 3 mg oral cap [Active]; tamsulosin 0.4 mg oral cp24 [Active]; Trazodone Oral [Active]; - PMHx: 07:55 Alzheimers; Dementia; Diabetes - NIDDM; Hyperlipidemia; Hypertension; Parkinsons; jl7 - PSHx: 07:55 Unable to obtain; jl7 - Immunization history:: Adult Immunizations up to date. - Social history:: Smoking status: Patient denies any tobacco usage or history of. Screenin:59 Abuse screen: Denies threats or abuse. Denies injuries from another. Nutritional jl7 screening: No deficits noted. Tuberculosis screening: No symptoms or risk factors identified. Fall Risk No fall in past 12 months (0 pts). Secondary diagnosis (15 points) Alzheimer's, No IV (0 pts). Ambulatory Aid- Crutches/Cane/Walker (15 pts). Gait- Weak (10 pts.). Mental Status- Overestimates/Forgets Limitations (15 pts.). Total Durand Fall Scale indicates High Risk Score (45 or more points). Fall prevention measures have been instituted. Side Rails Up X 2 Placed Close to Nursing Station Frequent Obs/Assessments Occuring As available patient and family educated on Fall Prevention Program and Strategies. Assessment: 07:59 General: See triage assessment. jl7 08:02 Reassessment: Spoke to the nurse, Shanthi, at the detention and she reported taking a jl7 "forehead" temperature. They were instructed to call the boss for anyone with a fever. She called the boss and the boss told her with everything that's going on to send the pt to the ER to be checked out. Shanthi reported the pt does not have any respiratory symptoms, no cough, and they did not obtain any other vital signs prior to calling EMS. ERD notified. 08:36 Reassessment: [facility] at bedside to transport pt back to detention. jl7 Vital Signs: 07:30 BP 140 / 89; Pulse 87; Resp 17; Temp 98.6; Pulse Ox 97% ; Pain 0/10; jl7 ED Course: 07:26 Patient arrived in ED. iw 07:30 Cyrus Gupta MD is Attending Physician. kdr 07:30 Lauren Joseph RN is Primary Nurse. jl7 07:51 Triage completed. jl7 07:55 Arm band placed on right wrist. jl7 07:59 Patient has correct armband on for positive identification. Bed in low position. Call jl7 light in reach. Side rails up X2. Pulse ox on. NIBP on. Warm blanket given. 07:59 No provider procedures requiring assistance completed. Patient did not have IV access jl7 during this emergency room visit. Administered Medications: No medications were administered Outcome: 08:14 Discharge ordered by . kdr 08:35 Discharged to detention. Report called to [place] Transfer form completed. jl7 08:35 Condition: stable 08:35 Discharge instructions given to detention, EMS, Instructed on discharge instructions, follow up and referral plans. Demonstrated understanding of instructions, follow-up care. 08:43 Patient left the ED. jl7 Signatures: Cyrus Gupta MD MD kdr Williams, Irene, RN RN iw Lauren Joseph RN RN jl7
== END 2020-02-20 08:43 | disposition home or self-care (01) ==
CPT/HCPCS: 99283

== ENCOUNTER 2020-02-29 14:07 | Inpatient (IN) | payer OTHER ==
[2020-02-29] MEDS ORDERED: FENTANYL CITR 100 MCG/2 ML ONE (14:12)
[2020-02-29] MEDS ORDERED: NA CHLORIDE 0.9% 1,000 ML ONE (14:12)
[2020-02-29] MEDS ORDERED: NOREPINEPHRINE 4mg/D5W 250mL 4 MG/250 ML BAG IV ONE (14:17)
[2020-02-29] MEDS ORDERED: EPINEPHrine 4 MG in NA CHLORIDE 0.9% 250 ML IV PRN ×2 (14:28→14:30)
--- NOTE | 2020-02-29 14:32 | RAD REPORT ---
EXAM DESCRIPTION: RAD - Chest Single View - 02/29/2020 2:24 pm CLINICAL HISTORY: post intubationunresponsive, intubation COMPARISON: Portable February 19, 2020 TECHNIQUE: AP portable chest image was obtained 02/29/2020 2:24 pm . FINDINGS: Endotracheal tube has been placed. Tip is at the mid aortic arch level 2-3 cm above the ca lonnie. Left lung field is clear of an acute process. Interstitial pattern matches comparison. Intersti tial and alveolar opacities are present throughout most of the right lung field. This is most pronoun lazaro in the medial right base. Heart and vasculature are normal. No measurable pleural effusion and no pneumothorax. No acute bony abnormality seen. No acute aortic findings suspected. IMPRESSION: Diffuse pneumonia changes are present throughout most of the right lung field. Left lung field is clear of acute finding. Endotracheal tube in good position.
[2020-02-29] MEDS ORDERED: NA CHLORIDE 0.9% 2,000 ML ONE (14:38)
[2020-02-29] MEDS ORDERED: FENTANYL/NS PCA 500 MCG/50 ML SYR IV PRN (14:42)
[2020-02-29 14:48] LABS: Absolute Lymphocytes (CBC) 0.4 K/uL (0.7-4.9); Basophils % 0.2 % (0-1.3); Hematocrit 44.1 % (39.6-49.0); Lymphocytes % 3.5 % (15.3-44.8); MPV 9.5 fL (7.6-11.3); RBC Red Blood Cell Count 4.73 M/uL (4.33-5.43)
--- OUTSIDE RECORDS SUMMARY | 2020-02-29 14:52 | XMS REPORT ---
:1940 [facility] [address]ing [address] [place] [address] Care Team Providers Name Role Phone MARLA [...] (BEAKER) 128 mg/dL 70-110 : TESTED AT [address] (test zgvg=9065) [place], [id number]: Sales Associate Key Holder/[employer] Dec[employer]ator [id number] for Jackeline Colon POCT-GLUCOSE [id number] 17:44:00 Test Item Value Reference Range Comments POC-GLUCOSE METER (BEAKER) 194 mg/dL 70-110 : TESTED AT [address] (test lcpc=6012) [facility], [id number]: Sales Associate Key Holder/[employer] Decorator [id number] for CAYLA, NINI POCT-GLUCOSE [id number] 12:42:00 Test Item Value Reference Range Comments POC-GLUCOSE METER (BEAKER) 190 mg/dL 70-110 : TESTED AT [address] (test joaq=1313) [facility], [id number]: Sales Associate Key Holder/[employer] Decorator [id number] for DUKES, NINI POCT-GLUCOSE [id number] 09:24:00 Test Item Value Reference Range Comments POC-GLUCOSE METER (BEAKER) 159 mg/dL 70-110 : TESTED AT [address] (test flbi=1197) [facility], [id number]: Sales Associate Key Holder/[employer] Decorator [id number] for DUKES, NINI BASIC METABOLIC [id number] 07:10:00 Test Item Value Reference Range Comments SODIUM (BEAKER) (test 138 meq/L 136-145 prdl=835) POTASSIUM (BEAKER) (test 3.7 meq/L 3.5-5.1 osty=458) CHLORIDE (BEAKER) (test 103 meq/L 98-107 rllz=018) CO2 (BEAKER) (test 26 meq/L 22-29 wzin=404) BLOOD UREA NITROGEN 14 mg/dL 7-21 (BEAKER) (test dghi=166) CREATININE (BEAKER) (test 1.21 mg/dL 0.57-1.25 vmzp=661) GLUCOSE RANDOM (BEAKER) 156 mg/dL 70-105 (test qcuj=398) CALCIUM (BEAKER) (test 9.2 mg/dL 8.4-10.2 vozs=356) EGFR (BEAKER) (test 58 mL/min/1.73 sq m ESTIMATED GFR IS NOT erwr=6846) ACCURATE CREATININE CLEARANCE IN PREDICTING GLOMERULAR FILTRATION RATE. ESTIMATED GFR IS NOT APPLICABLE FOR DIALYSIS PATIENTS. HEMOGLOBIN [id number] 06:47:00 Test Item Value Reference Range Comments HEMOGLOBIN A1C (BEAKER) (test kxvs=110) 7.7 % 4.3-6.1 CBC (HEMOGRAM ONLY)2019-10-31 05:16:00 Test Item Value Reference Range Comments WHITE BLOOD CELL COUNT (BEAKER) (test fvcd=193) 6.8 K/ L 3.5-10.5 RED BLOOD CELL COUNT (BEAKER) (test zewr=037) 4.28 M/ L 4.63-6.08 HEMOGLOBIN (BEAKER) (test gwyx=719) 13.0 GM/DL 13.7-17.5 HEMATOCRIT (BEAKER) (test ftfj=643) 39.4 % 40.1-51.0 MEAN CORPUSCULAR VOLUME (BEAKER) (test dzza=026) 92.1 fL 79.0-92.2 MEAN CORPUSCULAR HEMOGLOBIN (BEAKER) (test 30.4 pg 25.7-32.2 zcsm=613) MEAN CORPUSCULAR HEMOGLOBIN CONC (BEAKER) (test 33.0 GM/DL 32.3-36.5 cstm=951) RED CELL DISTRIBUTION WIDTH (BEAKER) (test 13.0 % 11.6-14.4 auyc=705) PLATELET COUNT (BEAKER) (test zicu=009) 288 K/CU MM 150-450 MEAN PLATELET VOLUME (BEAKER) (test ulzl=046) 9.6 fL 9.4-12.4 NUCLEATED RED BLOOD CELLS (BEAKER) (test 0 /100 WBC 0-0 bklh=346) POCT-GLUCOSE [id number] 21:14:00 Test Item Value Reference Range Comments POC-GLUCOSE METER (BEAKER) 162 mg/dL 70-110 : TESTED AT [address] (test nxcz=5764) [facility], [id number]: Sales Associate Key Holder/[employer] Decorator [id number] for SUHAIL TREVINO POCT-GLUCOSE [id number] 17:14:00 Test Item Value Reference Range Comments POC-GLUCOSE METER (BEAKER) 160 mg/dL 70-110 : TESTED AT [address] (test iqgp=7555) [facility], [address]: Sales Associate Key Holder/[employer] Decorator [id number] for KOLLEADE, RITCHEL URINALYSIS W/ [id number] 13:34:00 Test Item Value Reference Range Comments COLOR (BEAKER) (test sawp=984) Yellow CLARITY (BEAKER) (test fwyz=581) Clear SPECIFIC GRAVITY UA (BEAKER) (test uygk=309) 1.017 1.001-1.035 PH UA (BEAKER) (test jvug=436) 6.0 5.0-8.0 PROTEIN UA (BEAKER) (test chct=927) Negative Negative GLUCOSE UA (BEAKER) (test bixz=315) Negative Negative KETONES UA (BEAKER) (test juqz=538) Negative Negative BILIRUBIN UA (BEAKER) (test dkwx=469) Negative Negative BLOOD UA (BEAKER) (test ixtu=027) Negative Negative NITRITE UA (BEAKER) (test zcsd=468) Negative Negative LEUKOCYTE ESTERASE UA (BEAKER) (test sfrm=139) Small Negative UROBILINOGEN UA (BEAKER) (test ddgd=536) 0.2 mg/dL 0.2-1.0 RBC UA (BEAKER) (test jeqy=791) < /HPF WBC UA (BEAKER) (test wubk=954) 1 /HPF BACTERIA (BEAKER) (test bkdq=344) Occasional MUCUS (BEAKER) (test mfaw=6005) Occasional SQUAMOUS EPITHELIAL (BEAKER) (test pxks=908) 1 /HPF CASTS (BEAKER) (test woxc=8224) 1 /LPF SOURCE(BEAKER) (test axqg=6529) RAD, CHEST, PA OR AP, 1 [id number] 12:57:00Reason for exam:->chest pain Should this be [...] Culp Verified Date/Time: 10/30/2019 12:57:30 Reading Location: [address] Body Reading Room TROPONIN [id number] 12:37:00 Test Item Value Reference Range Comments TROPONIN I (BEAKER) (test fuoa=506) < ng/mL 0.00-0.03 Troponin I (TnI) levels [...] acidosis, acute neurological disease, and persistent tachyarrhythmia.C-REACTIVE [id number] 12:34:00 Test Item Value Reference Range Comments C-REACTIVE PROTEIN (BEAKER) (test gdup=866) 0.17 mg/dL 0.00-0.50 [id number] 12:31:00 Test Item Value Reference Range Comments MAGNESIUM (BEAKER) (test 1.9 mg/dL 1.6-2.6 Specimen slightly hemolyzed lizk=559) [id number] 12:31:00 Test Item Value Reference Range Comments PHOSPHORUS (BEAKER) (test 3.2 mg/dL 2.3-4.7 Specimen slightly hemolyzed nmds=401) BASIC METABOLIC [id number] 12:31:00 Test Item Value Reference Range Comments SODIUM (BEAKER) (test 138 meq/L 136-145 jvbh=275) POTASSIUM (BEAKER) (test 4.9 meq/L 3.5-5.1 Specimen slightly htxp=088) hemolyzed CHLORIDE (BEAKER) (test 106 meq/L 98-107 zxfc=565) CO2 (BEAKER) (test 23 meq/L 22-29 delr=301) BLOOD UREA NITROGEN 16 mg/dL 7-21 (BEAKER) (test ydto=991) CREATININE (BEAKER) 1.38 mg/dL 0.57-1.25 Specimen slightly (test thkp=335) hemolyzed GLUCOSE RANDOM (BEAKER) 122 mg/dL 70-105 (test umdx=572) CALCIUM (BEAKER) (test 9.5 mg/dL 8.4-10.2 msaw=774) EGFR (BEAKER) (test 50 mL/min/1.73 sq m INSUFFICIENT CLINICAL DATA khsm=6802) TO CALCULATE ESTIMATED GFR. HEPATIC FUNCTION [id number] 12:31:00 Test Item Value Reference Range Comments TOTAL PROTEIN (BEAKER) (test 6.9 gm/dL 6.0-8.3 Specimen slightly hemolyzed vxkz=924) ALBUMIN (BEAKER) (test 3.9 g/dL 3.5-5.0 Specimen slightly hemolyzed cmtj=0534) BILIRUBIN TOTAL (BEAKER) (test 0.6 mg/dL 0.2-1.2 Specimen slightly hemolyzed klkz=877) BILIRUBIN DIRECT (BEAKER) (test 0.2 mg/dL 0.1-0.5 Specimen slightly hemolyzed iffq=164) ALKALINE PHOSPHATASE (BEAKER) 86 U/L 40-150 (test yqko=449) AST (SGOT) (BEAKER) (test 15 U/L 5-34 Specimen slightly hemolyzed jczo=180) ALT (SGPT) (BEAKER) (test 10 U/L 6-55 Specimen slightly hemolyzed xfct=877) [id number] 12:29:00 Test Item Value Reference Range Comments PROTIME (BEAKER) (test svbv=497) 12.6 seconds 11.9-14.2 INR (BEAKER) (test xlnc=744) 1.0 <=5.9 PARTIAL THROMBOPLASTIN TIME (BEAKER) (test 30.0 seconds 22.5-36.0 ulkj=088) Effective 04/28/2019: PT Reference Range ChangeNew: 11.9-14.2 Previous: 11.7- 14.7RECOMMENDED COUMADIN/WARFARIN INR THERAPY RANGESSTANDARD DOSE: 2.0-3.0 Includes: PROPHYLAXIS for venous thrombosis, systemic embolization; TREATMENT for venous thrombosis and/or pulmonary embolus.HIGH RISK: Target INR is2.5-3.5 for patients wiht mechanical heart valves.CT, BRAIN, WITHOUT [id number] 12:23:00Reason for exam:->ALTERED MENTAL STATUSworsening over the [...] recommended for further characterization. Signed: Atiya Mccoy Verified Date/Time: 2018 12:23:54 Electronically signed by: ATIYA MCCOY MD on 2018 12:23 PMCBC W/PLT COUNT & AUTO [id number] 12:09:00 Test Item Value Reference Range Comments WHITE BLOOD CELL COUNT (BEAKER) (test fkfw=820) 7.2 K/ L 3.5-10.5 RED BLOOD CELL COUNT (BEAKER) (test hemf=859) 4.25 M/ L 4.63-6.08 HEMOGLOBIN (BEAKER) (test zbsf=590) 13.1 GM/DL 13.7-17.5 HEMATOCRIT (BEAKER) (test fqxe=384) 39.6 % 40.1-51.0 MEAN CORPUSCULAR VOLUME (BEAKER) (test vjco=512) 93.2 fL 79.0-92.2 MEAN CORPUSCULAR HEMOGLOBIN (BEAKER) (test 30.8 pg 25.7-32.2 ffla=756) MEAN CORPUSCULAR HEMOGLOBIN CONC (BEAKER) (test 33.1 GM/DL 32.3-36.5 ypfs=018) RED CELL DISTRIBUTION WIDTH (BEAKER) (test 12.9 % 11.6-14.4 vtkd=299) PLATELET COUNT (BEAKER) (test afuz=056) 286 K/CU MM 150-450 MEAN PLATELET VOLUME (BEAKER) (test uvhq=864) 10.0 fL 9.4-12.4 NUCLEATED RED BLOOD CELLS (BEAKER) (test 0 /100 WBC 0-0 inmf=870) NEUTROPHILS RELATIVE PERCENT (BEAKER) (test 58 % natf=802) LYMPHOCYTES RELATIVE PERCENT (BEAKER) (test 24 % ukww=074) MONOCYTES RELATIVE PERCENT (BEAKER) (test 13 % ehgy=075) EOSINOPHILS RELATIVE PERCENT (BEAKER) (test 4 % jovf=587) BASOPHILS RELATIVE PERCENT (BEAKER) (test 1 % lqyp=277) NEUTROPHILS ABSOLUTE COUNT (BEAKER) (test 4.17 K/ L 1.78-5.38 jyvc=060) LYMPHOCYTES ABSOLUTE COUNT (BEAKER) (test 1.72 K/ L 1.32-3.57 kaee=044) MONOCYTES ABSOLUTE COUNT (BEAKER) (test 0.90 K/ L 0.30-0.82 eidv=196) EOSINOPHILS ABSOLUTE COUNT (BEAKER) (test 0.32 K/ L 0.04-0.54 fddl=206) BASOPHILS ABSOLUTE COUNT (BEAKER) (test 0.05 K/ L 0.01-0.08 wgvw=908) IMMATURE GRANULOCYTES-RELATIVE PERCENT (EinspectAKER) 1 % 0-1 (test utjl=8754)
--- OUTSIDE RECORDS SUMMARY | 2020-02-29 14:52 | XMS REPORT ---
[...] Status Dosage System Date Date Tamsulosin HCl [facility] 82615443243 0.4 MG Orally Active 1 capsule Once a day Metformin HCl [facility] 60061101745 1000 MG Orally Active 1 tablet Once a day with a meal Esomeprazole [facility] 78125358378 40 MG Orally Active 1 capsule Magnesium Once a day Rivastigmine ND 55823263849 4.6 MG/24HR Active 1 patch to Transdermal skin Once a day Atorvastatin [facility] 39475044817 20 MG Orally Active 1 tablet Calcium Once a day Vitamin B12 ND 54217582082 1000 MCG Orally Active 1 tablet Once a day Folic Acid [facility] 34799547866 400 MCG Orally Active 1 tablet Once a day Memantine HCl [facility] 12633173978 5 (28)-10 (21) Active as MG Orally directed Tadalafil ND 79911323523 20 MG Orally Active 1 tablet Ibandronate ND 01752616222 150 MG Orally Active 1 tablet Sodium Multi For Him ND 45339865810 - Orally Active as directed Aspir-81 ND 75560110287 81 MG Orally Active 1 tablet Once a day Amlodipine ND 96805153855 5-10 MG Orally Active as Besy-Benazepril directed HCl Ergocalciferol [facility] 08562574659 49643 UNIT Active 1 capsule Orally Results No Known Results Summary Purpose eClinicalWorks Submission
[2020-02-29] MEDS ORDERED: NS 0.9% VIAL 30 ML ONE (14:55)
[2020-02-29 14:58] LABS: Protime INR 1.08
[2020-02-29 15:06] LABS: Albumin 2.6 g/dL (3.4-5.0); Bilirubin Direct 0.3 mg/dL (0-0.2); Bilirubin Total 0.9 mg/dL (0.2-1.0); C-Reactive Protein 13.7 mg/L (<3.00); CKMB Creatine Kinase MB 1.2 ng/mL (0.3-3.6); Protein, Total 5.9 g/dL (6.4-8.2); Troponin (Emerg Dept Use Only) 0.02 ng/mL (0.0-0.045)
[2020-02-29 15:08] LABS: Potassium 4.7 mmol/L (3.5-5.1)
[2020-02-29 15:10] LABS: Blood Morphology Comment NOT SEEN (NOT SEEN); Platelet Estimate INCR; Urine White Blood Cell Casts OK
[2020-02-29 15:17] LABS: Urine Amorphous Sediment TRACE /HPF (NONE SEEN); Urine Bacteria <20 /HPF (NONE SEEN); Urine Culture Reflex Order NOT NEEDED; Urine RBC <5 /HPF (NONE SEEN)
[2020-02-29] MEDS ORDERED: MIDAZOLAM HCL 2 MG/2 ML INJ ONE (15:32)
[2020-02-29 15:36] LABS: Arterial Blood Carboxyhemoglob 0.6 % (0-1.5); Blood Gas Oxyhemoglobin 95.3 % (94-97); Blood O2 Saturation 96.6 % (92-98.5)
[2020-02-29] MEDS ORDERED: PANTOPRAZOLE INJ 80 MG in NA CHLORIDE 0.9% 250 ML IV SCH (16:00)
[2020-02-29] MEDS ORDERED: PANTOPRAZOLE 40 MG INJ ONE (16:01)
[2020-02-29] MEDS ORDERED: CEFTRIAXONE/SWI 1gm 1 GM/10 ML SYR ONE (16:01)
[2020-02-29] MEDS ORDERED: NOREPINEPHRINE 4 MG in D5W 250 ML IV PRN (16:05)
--- NOTE | 2020-02-29 16:08 | RAD REPORT ---
EXAM DESCRIPTION: CT - Head Brain Wo Cont - 02/29/2020 4:01 pm CLINICAL HISTORY: CONFUSED, transient alteration of awareness COMPARISON: CT head February 18 TECHNIQUE: Axial 5 mm thick images of the head were obtained without IV contrast. All CT scans are performed using dose optimization technique as appropriate and may include automated exposure control or mA/KV adjustment according to patient size. FINDINGS: No intracranial hemorrhage, mass, edema or shift of mid-line structures. No acute infarcti on changes seen. No cortical edema or sulcal effacement. The prominent atrophy and moderate chronic i schemic pattern matches the February 18 study. Ventricles are in proportion the amount of volume loss. Mastoid air cells and visualized portions of the paranasal sinuses are clear. No acute bony findings. IMPRESSION: No acute intracranial finding identified. Prominent atrophy and moderate chronic ischemic changes match the February 18 study.
[2020-02-29] MEDS ORDERED: METHYLPREDNISOLONE 125 MG INJ ONE (16:10)
--- NOTE | 2020-02-29 16:19 | ER ---
Nurse's Notes [facility] Name: Boris Grimaldo Age: 79 yrs Sex: Male : 1940 Arrival Date: 02/29/2020 Time: 14:08 Bed 4 Private MD: Diagnosis: Severe sepsis with septic shock;Acute respiratory failure with hypoxia;Pneumonia due to other specified infectious organisms Presentation: 02/28 14:12 Chief complaint: EMS states: Pt is from [facility] and was AMS yesterday and today sv he became unresponsive. Initial BP 70/30, 88% RA, attempted to use 100% NRB but pt did not respond to it and they decided to intubate pt. ETT-7.5 25 \T\ teeth O2 sat up to 92% and were able to suction thick mucous. Levophed \T\ 15 mcg started to 20G L hand. 99 axillary temp. Ketamine 300 mg, Succs 100 mg given before intubation, Fentanyl 75 mcg given after intubation. Coronavirus screen: Surgical mask placed on patient. Patient moved to private room, placed in contact and droplet isolation with eye protection until further assessment. Unknown, but pt had thick mucous suctioned out. Ebola Screen: No symptoms or risks identified at this time. Risk Assessment: Do you want to hurt yourself or someone else? Unable to obtain. 14:12 Method Of Arrival: EMS: [facility] sv 14:12 Acuity: BABATUNDE 1 sv 15:05 Initial Sepsis Screen: Does the patient meet any 2 criteria? Systolic BP < 90 mmHg. sv Altered Mental Status. HR > 90 bpm. Yes Does the patient have a suspected source of infection? Yes: Productive cough/pneumonia. Onset of symptoms was February 28, 2020. Triage Assessment: 14:12 General: Appears unkempt, malnourished, Behavior is unresponsive. Pain: Unable to use sv pain scale. Does not appear to understand pain scale. FLACC scale score is 0 out of 10. Patient is intubated. Neuro: Level of Consciousness is unresponsive, intubated. Oriented to none. Cardiovascular: Rhythm is sinus tachycardia. Respiratory: Airway via oral intubation. Derm: Skin is pale. Historical: - Allergies: 15:08 Codeine; sv - Home Meds: 15:08 aspirin 81 mg Oral TbEC [Active]; Celecoxib Oral [Active]; imiquimod Topical [Active]; sv olanzapine Oral [Active]; tamsulosin 0.4 mg Oral cp24 [Active]; Trazodone Oral [Active]; rivastigmine tartrate 3 mg Oral cap [Active]; Metformin Oral [Active]; ergocalciferol (vitamin D2) Oral [Active]; amlodipine-benazepril oral oral [Active]; - PMHx: 15:08 Alzheimers; Hyperlipidemia; Dementia; Diabetes - NIDDM; Hypertension; Parkinsons; sv - PSHx: 15:08 Unable to obtain; sv - Immunization history:: Adult Immunizations unknown. - Social history:: Patient/guardian denies using alcohol, street drugs, The patient lives with family, Smoking status: unknown. Screenin:17 Abuse screen: Unable to assess, pt intubated. Nutritional screening: Unable to assess, sv pt intubated. . Tuberculosis screening: Unable to assess, pt intubated. . Fall Risk Fall in past 12 months (25 points). Secondary diagnosis (15 points) Alzheimer's, dementia, IV access (20 points). Ambulatory Aid- None/Bed Rest/Nurse Assist (0 pts). Gait- Normal/Bed Rest/Wheelchair (0 pts) Mental Status- Overestimates/Forgets Limitations (15 pts.). Total Durand Fall Scale indicates High Risk Score (45 or more points). Fall prevention measures have been instituted. Side Rails Up X 2 Placed Close to Nursing Station 1:1 Attendant Assigned Frequent Obs/Assessments Occuring As available patient and family educated on Fall Prevention Program and Strategies. Assessment: 14:00 General: Appears slender, well groomed, Behavior is unresponsive. pt is intubated. ch 14:20 Pain: Unable to use pain scale. Patient is intubated. Patient is unresponsive. Neuro: ch Level of Consciousness is unresponsive. Cardiovascular: Heart tones S1 S2 present Capillary refill is > 3 seconds in bilateral fingers toes Clubbing of nail beds is absent. Respiratory: Airway is patent via oral intubation Respiratory effort is pt is on vent Respiratory pattern is regular, Breath sounds are clear Breath sounds are diminished bilaterally. GI: Abdomen is flat, non-distended, Bowel sounds hypoactive in abdomen diffusely Abd is soft and non tender X 4 quads. : Urine is clear. Derm: Skin is fragile, with poor turgor pt has non blanching redness to sacrum Skin is moist, Skin is pale, Skin temperature is cool. 14:20 Musculoskeletal: pt is not responding unless repeated painful stimulation. 14:54 Reassessment: Dr. Rose at bedside to place central line. vc 15:01 Reassessment: Stitches placed. vc 15:03 Reassessment: Central line dressing placed by . vc 15:05 Reassessment: Central line complete. vc 15:38 Reassessment: Received PUI# from [facility], ([id number]). iw 15:40 Reassessment: I AM ONE ON ONE WITH PT, CRITICAL CARE. LEVOPHED BEING TITRATED FOR BLOOD ch PRESSURE, FENTINAL RUNNING TO ENSURE SEDATION AND COMFORT AFTER PT STARTED MOVING. PT IS NOT MOVING. 15:40 Respiratory: Airway via oral intubation Respiratory effort is even, Respiratory pattern ch is regular, Breath sounds are diminished bilaterally. 15:47 Reassessment: To CT via stretcher with RN and RT. vc 16:09 Reassessment: Back from CT with RN and RT. vc 16:51 Reassessment: Patient appears in no apparent distress at this time. decision made by family to discontinue care. awaiting family arrival prior to extubating. 18:24 Reassessment: Patient appears in no apparent distress at this time. family at bedside ch with pt. family given privacy. will monitor pt on vs machine. skin color is improved. pt Levophed drip is empty, order to d/c and not infuse more. 18:33 Reassessment: Patient appears in no apparent distress at this time. Patient and/or family updated on plan of care and expected duration. Pain level reassessed. awaiting family to say goodbye. 18:50 Reassessment: Patient appears in no apparent distress at this time. No changes from previously documented assessment. family states they are ready. 19:11 Reassessment: Patient appears in no apparent distress at this time. Patient and/or family updated on plan of care and expected duration. Pain level reassessed. family waiting in room 11. RT paged for extubation. family updated. 19:40 Reassessment: PT extubated with Gaurang RT, Hayden RN, and Dr. Francisco J GRECO. ET and OG tubes jb4 removed, IV fluids discontinued, Veras left in place, pt placed on 4L NC for comfort measures per Dr. Marx. Respirations are even unlabored and unassisted, Rhonchi is noted bilaterally. 20:00 Reassessment: O2 increased to 95% on 4L NC. jb4 03/01 13:44 Reassessment: Tari Russell rn- Ferdinand. tw2 15:57 Reassessment: Lab result for COVID-19 as reported by lab is negative. Dr. Mohan merritt notified. . Vital Signs: 02/28 14:12 BP 49 / 40; Pulse 106; Resp 20; Pulse Ox 92% on ETT ambu; Weight 72 kg; sv 14:23 BP 68 / 32; Pulse 104; Resp 22; Pulse Ox 95% on 100% FiO2 ETT vent; sv 14:47 BP 134 / 89; Pulse 100; Resp 24; Pulse Ox 97% on 100% FiO2 ETT vent; sv 14:59 BP 126 / 108; Pulse 94; Resp 26; Pulse Ox 92% on ETT vent; vc 15:05 Pulse 102; Temp 98.1(C); Pulse Ox 94% on ETT vent; vc 15:18 BP 114 / 90; Pulse 111; Resp 18; Temp 98.2(C); Pulse Ox 91% on ETT vent; vc 15:30 BP 114 / 82; Pulse 107; Resp 16; Temp 98.2(C); Pulse Ox 93% on ETT vent; ch 15:45 BP 108 / 87; Pulse 106; Resp 17; Temp 98.4; Pulse Ox 99% on ETT vent; Pain 0/10; ch 16:00 BP 113 / 80; Pulse 105; Resp 16; Pulse Ox 97% on ETT vent; ch 16:15 BP 105 / 72; Pulse 102; Resp 18; Temp 98.4; Pulse Ox 96% on ETT vent; ch 16:30 BP 117 / 79; Pulse 103; Resp 16; Temp 98.3; Pulse Ox 98% on ETT vent; ch 17:00 BP 123 / 70; Pulse 97; Resp 18; Temp 98.4; Pulse Ox 99% on ETT vent; ch 17:21 BP 131 / 87; Pulse 98; Resp 16; Temp 98.4(C); Pulse Ox 98% on ETT vent; ch 17:50 BP 123 / 70; Pulse 96; Resp 16; Temp 98.3; Pulse Ox 96% on R/A; ch 18:10 BP 110 / 88; Pulse 96; Resp 18; Temp 98.4(C); Pulse Ox 98% on ETT vent; Pain 0/10; ch 18:24 BP 93 / 66; Pulse 95; Resp 16; Temp 98.3(C); Pulse Ox 99% on ETT vent; Pain 0/10; ch 19:00 BP 80 / 68; Pulse 88; Resp 16; Temp 98.3; Pulse Ox 99% on ETT vent; Pain 0/10; ch 19:45 BP 92 / 59; Pulse 84; Resp 13; Temp 98.2(C); Pulse Ox 70% on R/A; jb4 ED Course: 14:08 Patient arrived in ED. am2 14:08 Cuate Marx MD is Attending Physician. ma2 14:12 Droplet isolation initiated. sv 14:12 Maintain EMS IV. Dressing intact. Site clean \T\ dry. Gauge \T\ site: 20G left hand. sv 14:15 Initial lab(s) drawn, by ED staff, sent to lab. First set of blood cultures drawn by ED sv staff. Inserted saline lock: 18 gauge in right forearm, using aseptic technique. ,using aseptic technique. done by Anastasiya DALTON Blood collected. 14:20 Flu and/or RSV swab sent to lab. Strep swab sent to lab. sv 14:21 Veras cath inserted, using sterile technique, 16 Fr., by ED staff, balloon inflated, to sv gravity drainage, urine specimen collected. other Criticore. 14:25 Arm band placed on. sv 14:25 Patient has correct armband on for positive identification. Placed in gown. Bed in low sv position. Call light in reach. Side rails up X2. bow maker machine tender on. Pulse ox on. NIBP on. 14:30 Door closed. Noise minimized. Visitors limited. Warm blanket given. Verbal reassurance ch given. 14:39 ABG drawn. by RT staff, on oxygen. sv 14:44 XRAY CXR (1 view) In Process Unspecified. EDMS 14:54 Assisted provider with central line placement. Set up central line tray. Triple lumen vc line placed in left internal jugular. Line placed by Cuate Marx MD Placement verified by blood return, Dressed with midline dressing kit. Blood was collected. Patient tolerated well. Was handwashing/sanitizing done immediately prior to procedure? Yes. Was patient positioned to in a way to prevent air embolism? Yes. Was procedure site sterilized? Yes, with betadine per MD discretion. Was the site allowed to dry? Yes. Was local anesthetic and/or sedation utilized? Yes. During the procedure, did the Practitioner(s) maintain a sterile field? Yes. After the procedure, did the Practitioner(s) clean the site and apply a sterile dressing? Yes. 15:02 Notified ED physician of a critical lab result(s). D-dimer-[id number]. sv 15:05 Triage completed. sv 15:15 Urine collected: Veras catheter specimen, anisha colored. ch 15:35 NGT: inserted 14 Fr. other orally verified placement of air over stomach, verified ch return of gastric contents, to intermittent suction. Returned gastric contents. pt has dark brown/red tinged gastric contents. 15:[address] via stretcher. sv 15:54 Patient moved back from CT. sv 16:02 Anastasiya Buckley, KRYSTLE is Primary Nurse. sv 16:04 CT Head Brain wo Cont Sent. sv 16:05 CT Head Brain wo Cont In Process Unspecified. EDMS 16:18 Phuong Preston MD is Hospitalizing Provider. ma2 16:24 CXR XRAY In Process Unspecified. EDMS 20:00 Patient admitted, IV remains in place. jb4 04 07:26 Primary Nurse role handed off by Anastasiya Buclkey RN bd 07:26 Attending Physician role handed off by Cuate Marx MD ms3 07:26 Gallo Chavez DO is Attending Physician. ms3 07:27 Anoop Betts MD is Attending Physician. ms3 Administered Medications: 02/28 14:15 Drug: Levophed (4 mg/250 mL D5W 4 mcg/min Route: IV; Rate: calculated rate; Site: right sv forearm; 18:39 Follow up: IV Status: Order to discontinue infusion; IV Intake: 250ml ch 14:17 Drug: fentaNYL (PF) 100 mcg Route: IVP; Site: left wrist; vc 15:00 Follow up: Response: No adverse reaction; Marked relief of symptoms ch 14:20 Drug: NS 0.9% (30 ml/kg) 30 ml/kg Route: IV; Rate: bolus; Site: right forearm; sv 15:10 Follow up: IV Status: Completed infusion; IV Intake: 2200ml ch 15:20 Drug: Versed 5 mg {Note: given by Anastasiya DALTON.} Route: IVP; Site: left subclavian; sv 17:21 Follow up: Response: No adverse reaction; Marked relief of symptoms ch 15:34 Drug: fentaNYL (PF) 1 mcg/kg/h Route: IV; Rate: calculated rate; Site: left subclavian; sv 16:02 Drug: Pantoprazole 80 mg {Note: given by Anastasiya DALTON.} Route: IVP; Site: left sv subclavian; 17:22 Follow up: Response: No adverse reaction; Marked relief of symptoms ch 16:03 Drug: Pantoprazole 8 mg/hr {Note: given by Anastasiya DALTON.} Route: IV; Rate: 25 ml/hr; sv Site: left subclavian; 16:04 Drug: Rocephin 1 grams {Note: given by Anastasiya DALTON.} Route: IV; Rate: calculated rate; sv Site: left subclavian; 16:10 Follow up: IV Status: Completed infusion; IV Intake: 10ml ch 16:09 Drug: SOLU-Medrol 60 mg {Note: given by Anastasiya DALTON.} Route: IVP; Site: left sv subclavian; 17:22 Follow up: Response: No adverse reaction ch 16:15 Drug: AZITHromycin 500 mg Route: IVPB; Infused Over: 1 hrs; Site: right forearm; ch 17:15 Follow up: IV Status: Completed infusion; IV Intake: 500ml ch 18:38 Not Given (medication not indicated): Epinephrine Drip - (EPINEPHrine (PF) 4 mg, Sodium ch Chloride 0.9% 250 ml) IV at calculated rate Per protocol; Start at 1 mcg/min; titrate upto 10 mcg/min to maintain SBP>90 mmHg Intake: 15:10 IV: 2200ml; Total: 2200ml. ch 16:10 IV: 10ml; Total: 2210ml. ch 17:15 IV: 500ml; Total: 2710ml. ch 18:39 IV: 250ml; Total: 2960ml. ch Outcome: 16:18 Decision to Hospitalize by Provider. ma2 20:00 Admitted to ER Hold. Please see [facility] for further documentation. jb4 20:00 Condition: improved 20:00 Discharge instructions given to family, Instructed on the need for admit, Demonstrated understanding of instructions. 04 16:16 Patient left the ED. ss Signatures: Dispatcher [employer] EDMS Valencia Damian Christina, RN RN ch Verde, Stephanie RN Lay Davalos RN Manju Raines RN RN aa5 Marsha Ragsdale RN RN ss Wise, Tara, RN RN tw2 Dominick Jackson RN RN jb4 Celsa Miller am2 Cuate Marx MD MD ma2 Serena Vences RN RN vc Sims, Marcus, DO DO ms3 Corrections: (The following items were deleted from the chart) 02/28 15:15 14:12 Chief complaint: EMS states: Pt is from [facility] and was AMS yesterday and sv today he became unresponsive. Initial BP 70/30, 88% RA, attempted to use 100% NRB but pt did not respond to it and they decided to intubate pt. ETT-7.5 25 \T\ teeth O2 sat up to 92% and were able to suction thick mucous. Levophed \T\ 15 mcg started to 20G L hand. 99 axillary temp. sv 15:58 15:05 Temp 98.1F Catheter; sv vc 16:11 04:17 fentaNYL (PF) 100 mcg IVP in left wrist vc vc 17:20 15:45 BP 108 / 87; Pulse 106bpm; Resp 17bpm; Pulse Ox 99% RA; Temp 98.4F; Pain 0/10; ch ch 17:20 16:00 BP 113 / 80; Pulse 105bpm; Resp 16bpm; Pulse Ox 97% RA; ch ch 17:20 16:15 BP 105 / 72; Pulse 102bpm; Resp 18bpm; Pulse Ox 96% RA; Temp 98.4F; ch ch
--- NOTE | 2020-02-29 16:20 | EDPHYS ---
Physician Documentation [facility] Name: Boris Grimaldo Age: 79 yrs Sex: Male : 1940 Arrival Date: 02/29/2020 Time: 14:08 Bed 4 Private MD: ED Physician Anoop Betts HPI: 02/28 14:32 This 79 yrs old Male presents to ER via Unassigned with complaints of ma2 Unresponsive. 14:32 The patient has shortness of breath at rest. Onset: The symptoms/episode began/occurred ma2 suddenly, 1 day(s) ago. Associated signs and symptoms: Pertinent negatives: productive cough, dizziness, hemoptysis. Severity of symptoms: At their worst the symptoms were severe in the emergency department the symptoms are unchanged. The patient has experienced similar episodes in the past. intubated by ems, d/t ams and low spo2 to 80s . Historical: - Allergies: 15:08 Codeine; sv - Home Meds: 15:08 aspirin 81 mg Oral TbEC [Active]; Celecoxib Oral [Active]; imiquimod Topical [Active]; sv olanzapine Oral [Active]; tamsulosin 0.4 mg Oral cp24 [Active]; Trazodone Oral [Active]; rivastigmine tartrate 3 mg Oral cap [Active]; Metformin Oral [Active]; ergocalciferol (vitamin D2) Oral [Active]; amlodipine-benazepril oral oral [Active]; - PMHx: 15:08 Alzheimers; Hyperlipidemia; Dementia; Diabetes - NIDDM; Hypertension; Parkinsons; sv - PSHx: 15:08 Unable to obtain; sv - Immunization history:: Adult Immunizations unknown. - Social history:: Patient/guardian denies using alcohol, street drugs, The patient lives with family, Smoking status: unknown. ROS: 14:32 Constitutional: Negative for fever, chills, and weight loss. ma2 14:32 Unable to obtain ROS due to altered mental status, patient is on ventilator. Exam: 14:32 Head/Face: Normocephalic, atraumatic. Eyes: Pupils equal round and reactive to light, ma2 extra-ocular motions intact. Lids and lashes normal. Conjunctiva and sclera are non-icteric and not injected. Cornea within normal limits. Periorbital areas with no swelling, redness, or edema. ENT: Nares patent. No nasal discharge, no septal abnormalities noted. Tympanic membranes are normal and external auditory canals are clear. Oropharynx with no redness, swelling, or masses, exudates, or evidence of obstruction, uvula midline. Mucous membranes moist. Neck: Trachea midline, no thyromegaly or masses palpated, and no cervical lymphadenopathy. Supple, full range of motion without nuchal rigidity, or vertebral point tenderness. No Meningismus. Chest/axilla: Normal chest wall appearance and motion. Nontender with no deformity. No lesions are appreciated. Cardiovascular: Regular rate and rhythm with a normal S1 and S2. No gallops, murmurs, or rubs. Normal PMI, no JVD. No pulse deficits. Respiratory: intubated by et tube at 25 at teethm, Lungs have equal breath sounds bilaterally, clear to auscultation and percussion. No rales, rhonchi or wheezes noted. No increased work of breathing, no retractions or nasal flaring. Skin: Warm, dry with normal turgor. Normal color with no rashes, no lesions, and no evidence of cellulitis. Vital Signs: 14:12 BP 49 / 40; Pulse 106; Resp 20; Pulse Ox 92% on ETT ambu; Weight 72 kg; sv 14:23 BP 68 / 32; Pulse 104; Resp 22; Pulse Ox 95% on 100% FiO2 ETT vent; sv 14:47 BP 134 / 89; Pulse 100; Resp 24; Pulse Ox 97% on 100% FiO2 ETT vent; sv 14:59 BP 126 / 108; Pulse 94; Resp 26; Pulse Ox 92% on ETT vent; vc 15:05 Pulse 102; Temp 98.1(C); Pulse Ox 94% on ETT vent; vc 15:18 BP 114 / 90; Pulse 111; Resp 18; Temp 98.2(C); Pulse Ox 91% on ETT vent; vc 15:30 BP 114 / 82; Pulse 107; Resp 16; Temp 98.2(C); Pulse Ox 93% on ETT vent; ch 15:45 BP 108 / 87; Pulse 106; Resp 17; Temp 98.4; Pulse Ox 99% on ETT vent; Pain 0/10; ch 16:00 BP 113 / 80; Pulse 105; Resp 16; Pulse Ox 97% on ETT vent; ch 16:15 BP 105 / 72; Pulse 102; Resp 18; Temp 98.4; Pulse Ox 96% on ETT vent; ch 16:30 BP 117 / 79; Pulse 103; Resp 16; Temp 98.3; Pulse Ox 98% on ETT vent; ch 17:00 BP 123 / 70; Pulse 97; Resp 18; Temp 98.4; Pulse Ox 99% on ETT vent; ch 17:21 BP 131 / 87; Pulse 98; Resp 16; Temp 98.4(C); Pulse Ox 98% on ETT vent; ch 17:50 BP 123 / 70; Pulse 96; Resp 16; Temp 98.3; Pulse Ox 96% on R/A; ch 18:10 BP 110 / 88; Pulse 96; Resp 18; Temp 98.4(C); Pulse Ox 98% on ETT vent; Pain 0/10; ch 18:24 BP 93 / 66; Pulse 95; Resp 16; Temp 98.3(C); Pulse Ox 99% on ETT vent; Pain 0/10; ch 19:00 BP 80 / 68; Pulse 88; Resp 16; Temp 98.3; Pulse Ox 99% on ETT vent; Pain 0/10; ch 19:45 BP 92 / 59; Pulse 84; Resp 13; Temp 98.2(C); Pulse Ox 70% on R/A; jb4 Procedures: 16:10 Central Line: the site was prepped with in sterile fashion, a triple lumen catheter was ma2 inserted, in the left internal jugular vein, in 1 attempts. placement was verified, by CXR, by blood return, the site was dressed with 4X4s, Tegaderm, using sterile technique, the patient tolerated the procedure, well. MDM: 14:17 Patient medically screened. ma2 14:32 Differential diagnosis: Anemia asthma, Bronchitis Myocardial Infarction pulmonary ma2 edema, reactive airway disease. Antibiotic administration: 16:10 Data reviewed: vital signs, nurses notes. ma2 16:10 Test interpretation: by ED physician or midlevel provider: ECG, plain radiologic ma2 studies. Post IV fluid administration reassessment for Sepsis: Sepsis focused reassessment complete. Focused assessment performed: February 29, 2020 at 16:11 Heart: Regular rate/rhythm. Lungs: noted to be clear bilaterally. Capillary refill examination performed. Capillary refill noted to be brisk. Peripheral pulse evaluation performed. Radial Pedal Peripheral pulses noted to be 3+ normal. Skin examination performed. Skin noted to be pink. Current patient vital signs reviewed: Yes. Neuro: Cardio: Cardiovascular exam improved from previous exam. Heart rate and blood pressure have improved. Respiratory: Respiratory exam improved from previous exam. Counseling: I had a detailed discussion with the patient and/or guardian regarding: the historical points, exam findings, and any diagnostic results supporting the discharge/admit diagnosis, the presence of at least one elevated blood pressure reading (>120/80) during this emergency department visit, the need for further work-up and treatment in the hospital. Response to treatment: the patient's symptoms have markedly improved after treatment. 16:54 ED course: after discussion with dr. hebert patient is dnr and dni, he was intubated by [facility] ems at scene, no family available in the hospital at this time. called and she will come to the hospital shortly. . 02/28 14:15 Order name: ABG; Complete Time: 15:38 02/28 14:15 Order name: Blood Culture Adult (2) nm02/28 14:15 Order name: BMP; Complete Time: 15:34 nm02/28 14:15 Order name: CBC with Diff; Complete Time: 15:34 nm02/28 14:15 Order name: Ckmb; Complete Time: 15:34 nm02/28 14:15 Order name: CPK; Complete Time: 15:34 nm02/28 14:15 Order name: D-Dimer; Complete Time: 15:34 nm02/28 16:24 Interpretation: Within normal limits. nm02/28 14:15 Order name: Hepatic Function; Complete Time: 15:34 nm02/28 14:15 Order name: Lipase; Complete Time: 15:34 nm02/28 14:15 Order name: Magnesium; Complete Time: 15:34 nm02/28 14:15 Order name: NT PRO-BNP; Complete Time: 15:34 nm02/28 14:15 Order name: PT-INR; Complete Time: 15:34 nm02/28 14:15 Order name: Ptt, Activated; Complete Time: 15:34 ma02/28 14:15 Order name: Troponin (emerg Dept Use Only); Complete Time: 15:34 [facility] 02/28 14:15 Order name: CT Head Brain wo Cont nm02/28 14:15 Order name: XRAY CXR (1 view) nm02/28 14:16 Order name: COVID-19; Complete Time: 15:34 [facility] 02/28 14:16 Order name: Flu; Complete Time: 15:34 [facility] 02/28 14:20 Order name: C-Reactive Protein; Complete Time: 15:34 nm02/28 14:20 Order name: Urine Culture nm02/28 14:20 Order name: Amylase, Serum; Complete Time: 15:34 [facility] 02/28 14:20 Order name: Lactate; Complete Time: 16:08 [facility] 02/28 14:20 Order name: Procalcitonin; Complete Time: 15:34 [facility] 02/28 14:20 Order name: Urine Microscopic Only; Complete Time: 15:34 [facility] 02/28 15:12 Order name: CBC Smear Scan; Complete Time: 15:34 [facility] 02/28 16:03 Order name: CXR XRAY nm02/28 14:15 Order name: EKG; Complete Time: 14:18 [facility] 02/28 14:15 Order name: Cardiac monitoring; Complete Time: 16:04 nm02/28 14:15 Order name: EKG - Nurse/Tech; Complete Time: 16:04 [facility] 02/28 14:15 Order name: IV Saline Lock; Complete Time: 16:04 [facility] 02/28 14:15 Order name: Labs collected and sent; Complete Time: 16: nm02/28 14:15 Order name: O2 Per Protocol; Complete Time: 16:04 nm02/28 14:15 Order name: O2 Sat Monitoring; Complete Time: 16:04 [facility] 02/28 14:16 Order name: Veras; Complete Time: 16: [facility] 02/28 14:16 Order name: Urine Dipstick-Ancillary (obtain specimen); Complete Time: 16:04 [facility] 02/28 14:20 Order name: IV Saline Lock - Large Bore; Complete Time: 15:19 ma2 Administered Medications: 14:15 Drug: Levophed (4 mg/250 mL D5W 4 mcg/min Route: IV; Rate: calculated rate; Site: right sv forearm; 18:39 Follow up: IV Status: Order to discontinue infusion; IV Intake: 250ml ch 14:17 Drug: fentaNYL (PF) 100 mcg Route: IVP; Site: left wrist; vc 15:00 Follow up: Response: No adverse reaction; Marked relief of symptoms ch 14:20 Drug: NS 0.9% (30 ml/kg) 30 ml/kg Route: IV; Rate: bolus; Site: right forearm; sv 15:10 Follow up: IV Status: Completed infusion; IV Intake: 2200ml ch 15:20 Drug: Versed 5 mg {Note: given by Anastasiya RN.} Route: IVP; Site: left subclavian; sv 17:21 Follow up: Response: No adverse reaction; Marked relief of symptoms ch 15:34 Drug: fentaNYL (PF) 1 mcg/kg/h Route: IV; Rate: calculated rate; Site: left subclavian; sv 16:02 Drug: Pantoprazole 80 mg {Note: given by Anastasiya DALTON.} Route: IVP; Site: left sv subclavian; 17:22 Follow up: Response: No adverse reaction; Marked relief of symptoms ch 16:03 Drug: Pantoprazole 8 mg/hr {Note: given by Anastasiya DALTON.} Route: IV; Rate: 25 ml/hr; sv Site: left subclavian; 16:04 Drug: Rocephin 1 grams {Note: given by Anastasiya DALTON.} Route: IV; Rate: calculated rate; sv Site: left subclavian; 16:10 Follow up: IV Status: Completed infusion; IV Intake: 10ml ch 16:09 Drug: SOLU-Medrol 60 mg {Note: given by Anastasiya DALTON.} Route: IVP; Site: left sv subclavian; 17:22 Follow up: Response: No adverse reaction ch 16:15 Drug: AZITHromycin 500 mg Route: IVPB; Infused Over: 1 hrs; Site: right forearm; ch 17:15 Follow up: IV Status: Completed infusion; IV Intake: 500ml ch 18:38 Not Given (medication not indicated): Epinephrine Drip - (EPINEPHrine (PF) 4 mg, Sodium ch Chloride 0.9% 250 ml) IV at calculated rate Per protocol; Start at 1 mcg/min; titrate upto 10 mcg/min to maintain SBP>90 mmHg Disposition: 16:18 Critical Care:. ma2 Disposition: 02/29/20 16:18 Hospitalization ordered by Phuong Hebert for Inpatient Admission. Preliminary diagnosis are Severe sepsis with septic shock, Acute respiratory failure with hypoxia, Pneumonia due to other specified infectious organisms. - Bed requested for Telemetry/MedSurg (Inpatient). - Status is Inpatient Admission. ss - Condition is Guarded. - Problem is new. - Symptoms are unchanged. Critical care time excluding procedures: 16:18 Critical care time: Bedside Care: 20 minutes, Consultation: 10 minutes, Family ma2 Intervention: 10 minutes. Total time: 40 minutes Signatures: Dispatcher [employer] EDWA Valencia Damian Christina, RN Vane Josue ch, RN RN sv Webb, Martha, RN RN mw Smirch, Shelby, RN RN ss Alzahri, Mohammad, MD MD ma2 Calcote, Vanessa, RN RN vc Corrections: (The following items were deleted from the chart) 16:03 14:20 Accucheck ordered. [facility] 16:09 15:08 Chest For PE Angio+CT.RAD.BRZ ordered. EDWA EDWA 03/01 03:59 02/28 16:18 Hospitalization Ordered by Phuong Hebert MD for Inpatient Admission. Preliminary diagnosis is Severe sepsis with septic shock; Acute respiratory failure with hypoxia; Pneumonia due to other specified infectious organisms. Bed requested for Intensive Care Unit. Status is Inpatient Admission. Condition is Guarded. Problem is new. Symptoms are unchanged. nm2 03/01 11:00 03:59 02/29/2020 16:18 Hospitalization Ordered by Phuong Hebert MD for Inpatient bd Admission. Preliminary diagnosis is Severe sepsis with septic shock; Acute respiratory failure with hypoxia; Pneumonia due to other specified infectious organisms. Bed requested for [facility] ER HOLD. Status is Inpatient Admission. Condition is Guarded. Problem is new. Symptoms are unchanged. mw 16:16 11:00 02/29/2020 16:18 Hospitalization Ordered by Phuong Hebert MD for Inpatient ss Admission. Preliminary diagnosis is Severe sepsis with septic shock; Acute respiratory failure with hypoxia; Pneumonia due to other specified infectious organisms. Bed requested for Telemetry/MedSurg (Inpatient). Status is Inpatient Admission. Condition is Guarded. Problem is new. Symptoms are unchanged. bd
--- NOTE | 2020-02-29 16:35 | RAD REPORT ---
EXAM DESCRIPTION: RAD - Chest Single View - 02/29/2020 4:23 pm CLINICAL HISTORY: post central line COMPARISON: February 28 TECHNIQUE: AP portable chest image was obtained 02/29/2020 4:23 pm . FINDINGS: Left-sided central venous catheter has been placed. Tip is in the mid and distal SVC, good position. There is no identifiable pneumothorax. Right lower opacification not substantially different from earlier study. ET tube is in good position mid aortic arch level. NG tube has been placed. Tip extends below the diaphragm, off the field of view. Heart and vasculature are normal. No new or enlarging pleural effusion. No acute bony abnormality se en. No acute aortic findings suspected. IMPRESSION: Left-sided central venous catheter has been placed. Tip is in good position at the mid t o distal SVC. No pneumothorax. Good positioning of the ET tube and NG tube. No change to the right lung parenchymal opacification since earlier study.
[2020-02-29] MEDS ORDERED: AZITHROMYCIN IV 500 MG in NA CHLORIDE 0.9% 250 ML IVPB ONE (17:00)
--- NOTE | 2020-02-29 18:00 | P.HP ---
Certification for Inpatient Patient admitted to: Inpatient With expected LOS: >2 Midnights Practitioner: I am a practitioner with admitting privileges, knowledge of patient current condition, hospital course, and medical plan of care. Services: Services provided to patient in accordance with Admission requirements found in Title 42 Section 412.3 of the Code of Federal Regulations Patient History Date of Service: 03/01/20 Reason for admission: Unresponsive History of Present Illness: Patient is a 79-year-old male with past medical history of diabetes mellitus type 2 [id number], hypertension, Parkinson's disease, Alzheimer's dementia who is a resident of longterm Memory unit who was discharged from the hospital approximately 10 days ago for acute kidney injury. Patient had been doing well according to the who had checked on him yesterday. However patient took a sudden decline in his status became unresponsive. Patient's symptoms are constant moderate progressively worsening. [facility] called EMS where patient was intubated on the scene despite being DNR. It is unclear if the DNR document was readily available at the facility. In the ER patient's vital signs showed a systolic blood pressure 49 he was tachycardic tachypneic and afebrile. His workup revealed a right-sided pneumonia with patchy opacities. Patient was started on pressors his D-dimer was 35,000 he has septic shock with elevated lactate and kidney dysfunction. The patient was started on IV fluids and IV antibiotics. His influenza screen was negative. Due to his respiratory symptoms patient was tested for the novel riley virus and placed on isolation. Patient was referred for admission. Allergies codeine Allergy (Verified 02/19/20 05:30) restless Home medications list reviewed: Yes Home Medications: Amlodipine Besylate/Benazepril [Amlodipine-Benazepril 5-10 mg] 1 cap PO DAILY Aspirin [Lo-Dose Aspirin EC] 1 tab PO DAILY 02/19/20 Celecoxib 1 cap PO DAILY 02/19/20 Ergocalciferol (Vitamin D2) [Vitamin D2] 1 cap PO SEECOM 02/19/20 Imiquimod 1 mercedez TOP SEECOM 02/19/20 Rivastigmine Tartrate [Exelon*] 3 mg PO BID 02/19/20 Tamsulosin HCl 1 tab PO DAILY 02/19/20 Trazodone [Desyrel*] 1 tab PO BEDTIME 02/19/20 Colestipol HCl [Colestid] 1 - 2 gm PO 03/01/20 Melatonin 10 mg PO DAILY 03/01/20 Metformin HCl [Metformin HCl ER] 750 mg PO DAILY 03/01/20 OLANZapine [Olanzapine] 10 mg PO BID 03/01/20 - Past Medical/Surgical History Diabetic: Yes -: Hypertension -: Diabetes mellitus -: Parkinson's -: Dementia -: Basal CA -back of the neck -: unknown -: Testicles sx -: Bilateral Cataracts - Family History Father -: Hypertension, Other (see notes) Notes: triple bypass Mother -: Other (see notes) Notes: Alzheimers Uncle -: Cancer - Social History Alcohol use: No CD- Drugs: No Caffeine use: No Review of Systems is unable to be obtained Physical Examination - Vital Signs Temperature: 98.1 F Blood Pressure: 49/40 Pulse: 106 Respirations: 20 Pulse Ox (%): 92 - Physical Exam General: Alert, Severe distress (Respiratory), Other (Ill-appearing elderly male ) HEENT: Atraumatic, PERRLA, Other (ET tube in place), Sclerae nonicteric Respiratory: Diminished, Other (Use of accessory muscles) Cardiovascular: Normal S1 S2, Irregular heart rate/rhythm Capillary refill: >2 Seconds Gastrointestinal: Normal bowel sounds, Soft and benign, Non-distended, No tenderness Integumentary: No rashes, No erythema Neurological: Normal tone, Normal affect - Studies Laboratory Data (last 24 hrs) 02/29/20 14:15: Amylase 278 H* 02/29/20 14:15: PT 12.7 H, INR 1.08, APTT 30.8 02/29/20 14:15: WBC 12.6 H, Hgb 14.4, Hct 44.1, Plt Count 424 H D 02/29/20 14:15: Sodium 147 H, Potassium 4.7, BUN 73 H D, Creatinine 2.72 H D, Glucose 233 H, Magnesium 2.0, Total Bilirubin 0.9, AST 17, ALT 26, Alkaline Phosphatase 83, Lipase 61 L Microbiology Data (last 24 hrs): 02/29/20 14:30 Nasopharnyx Coronavirus COVID-19 PCR - Final 02/29/20 14:15 Nasopharnyx Influenza Type A Antigen Screen - Final 02/29/20 14:15 Nasopharnyx Influenza Type B Antigen Screen - Final Imagings Data: Chest x-ray IMPRESSION: Left-sided central venous catheter has been placed. Tip is in good position at the mid to distal SVC. No pneumothorax. Good positioning of the ET tube and NG tube. No change to the right lung parenchymal opacification since earlier study. CT head IMPRESSION: No acute intracranial finding identified. Prominent atrophy and moderate chronic ischemic changes match the February 18 study. Assessment and Plan - Plan Acute respiratory failure with hypoxia patient is DNR however was intubated on the scene. Likely secondary to pulmonary embolism and pneumonia. Possible riley virus. Patient currently on the ventilator spoke with family who wished to withdraw patient never wanted to be on life support. Septic shock secondary to pneumonia patient blood pressure 40s systolic. Currently on 2 pressors. Probable pulmonary embolism. D-dimer is 35,000. Creatinine is elevated unable to do CT angio chest. No clinical signs of DVT Right pneumonia Healthcare associated bacterial. Has been started on antibiotics and cultures have been obtained Acute kidney injury. Likely secondary to hypoxia hypotension Acute metabolic acidosis. Secondary to hypotension Acute metabolic encephalopathy. Likely secondary to above Diabetes mellitus type 2 with hyperglycemia Severe Alzheimer's dementia. Patient is demented at baseline and requires assistance with all of his activities of daily living. Patient is a resident of a Memory Care unit. Parkinson's. Patient is a 79-year-old male who was DNR however unfortunately was intubated at the scene at the Memory unit. I spoke to the and family at length regarding his poor prognosis. Patient is on multiple pressors in with septic shock, respiratory failure likely secondary to the acute pulmonary embolism. At baseline he is demented is in the nursing Memory unit. He requires assistance for his activities of daily living. Per who is the next of kin and the sons and daughter they do not wish the patient to be on life support. Patient's wishes were clear that he did not want to live on a ventilator. They are agreeable to care and comfort measures and to withdrawal of life support. They understand that removing the patient from the ventilator as well as pressors will be a terminal event and he will likely . as patient is a person under investigation for Riley virus special precautions are to be taking for the family to visit with him in his last moments. His nasal swab has been sent out. Spoke with ER physician and nursing staff to withdraw care. Will place patient on care and comfort measures - Advance Directives Does patient have a Living Will: Yes Does patient have a Durable POA for Healthcare: Yes
[2020-02-29 22:33] VITALS: BMI 22.7
[2020-03-01] MEDS ORDERED: LORazepam 2 MG/ML VIAL ONE ×4 (01:45→15:31)
[2020-03-01] MEDS: LORazepam 2 MG/ML VIAL IV PRN ×3 (01:47→14:05)
[2020-03-01 04:48] VITALS: O2SAT 94
[2020-03-01] MEDS ORDERED: ACETAMINOPHEN 650MG/RECT SUPP PR ONE (06:40)
[2020-03-01] MEDS ORDERED: ACETAMINOPHEN 650MG/RECT SUPP PR PRN (07:13)
--- NOTE | 2020-03-01 10:59 | P.DS ---
Admission Date: 02/29/20 Discharge Date: 03/01/20 Disposition: HOSPICE-HOME Discharge Condition: CRITICAL Reason for Admission: Unresponsive Brief History of Present Illness: Patient is a 79-year-old male with past medical history of diabetes mellitus type 2 [id number], hypertension, Parkinson's disease, Alzheimer's dementia who is a resident of senior living Memory unit who was discharged from the hospital approximately 10 days ago for acute kidney injury. Patient had been doing well according to the who had checked on him yesterday. However patient took a sudden decline in his status became unresponsive. Patient's symptoms are constant moderate progressively worsening. [facility] called EMS where patient was intubated on the scene despite being DNR. It is unclear if the DNR document was readily available at the facility. In the ER patient's vital signs showed a systolic blood pressure 49 he was tachycardic tachypneic and afebrile. His workup revealed a right-sided pneumonia with patchy opacities. Patient was started on pressors his D-dimer was 35,000 he has septic shock with elevated lactate and kidney dysfunction. The patient was started on IV fluids and IV antibiotics. His influenza screen was negative. Due to his respiratory symptoms patient was tested for the novel riley virus and placed on isolation. Patient was referred for admission. Hospital Course: Patient is a 79-year-old male hypertension diabetes mellitus type 2, Parkinson' s disease and dementia who was brought in for unresponsiveness from the Memory unit. Patient was DNR however was resuscitated on the field. Patient had respiratory failure hypotensive and septic shock requiring pressors pneumonia and elevated D-dimer likely due to a pulmonary embolism. He received IV fluids and antibiotics. After speaking with the patient's who is the next of kin patient's wishes were do not resuscitate and life support was discontinued. Patient was taken off the ventilator and pressors were stopped. Patient survived the night however remains hypoxic and hypotensive. His riley virus testing is also pending. Patient's family requested can comfort measures and to have hospice services initiated. Family wants to take the patient home. manager poker and social work were consulted for setting up hospice services. Patient was discharged to hospice service. He has a very poor prognosis and was likely succumb to his illness in a matter of hrs to days. Acute respiratory failure with hypoxia patient is DNR however was intubated on the scene. Likely secondary to pulmonary embolism and pneumonia. Possible riley virus. Patient currently on the ventilator spoke with family who wished to withdraw patient never wanted to be on life support. Septic shock secondary to pneumonia patient blood pressure 40s systolic. Currently on 2 pressors. Probable pulmonary embolism. D-dimer is 35,000. Creatinine is elevated unable to do CT angio chest. No clinical signs of DVT Right pneumonia Healthcare associated bacterial. Has been started on antibiotics and cultures have been obtained Acute kidney injury. Likely secondary to hypoxia hypotension Acute metabolic acidosis. Secondary to hypotension Acute metabolic encephalopathy. Likely secondary to above Diabetes mellitus type 2 with hyperglycemia Severe Alzheimer's dementia. Patient is demented at baseline and requires assistance with all of his activities of daily living. Patient is a resident of a Memory Care unit. Parkinson's. Vital Signs/Physical Exam: Temp Pulse Resp BP Pulse Ox 98.1 F 106 H 20 49/40 L 92 03/01/20 10:03 03/01/20 10:03 03/01/20 10:03 03/01/20 10:03 03/01/20 10:03 General: Moderate distress, Unresponsive HEENT: Sclerae nonicteric Neck: Supple, JVD not distended Respiratory: Diminished Cardiovascular: No edema, Regular rate/rhythm, Normal S1 S2, Abnormal pulses Capillary refill: >2 Seconds Gastrointestinal: Normal bowel sounds, Soft and benign, Non-distended Integumentary: No rashes Neurological: Normal strength at 5/5 x4 extr, Abnormal speech Laboratory Data at Discharge: WBC 12.6 K/uL (4.3-10.9) H 02/29/20 14:15 Hgb 14.4 g/dL (13.6-17.9) 02/29/20 14:15 Hct 44.1 % (39.6-49.0) 02/29/20 14:15 Plt Count 424 K/uL (152-406) H D 02/29/20 14:15 PT 12.7 SECONDS (9.5-12.5) H 02/29/20 14:15 INR 1.08 02/29/20 14:15 APTT 30.8 SECONDS (24.3-36.9) 02/29/20 14:15 Sodium 147 mmol/L (136-145) H 02/29/20 14:15 Potassium 4.7 mmol/L (3.5-5.1) 02/29/20 14:15 BUN 73 mg/dL (7-18) H D 02/29/20 14:15 Creatinine 2.72 mg/dL (0.55-1.3) H D 02/29/20 14:15 Glucose 233 mg/dL (74-106) H 02/29/20 14:15 Magnesium 2.0 mg/dL (1.8-2.4) 02/29/20 14:15 Total Bilirubin 0.9 mg/dL (0.2-1.0) 02/29/20 14:15 AST 17 U/L (15-37) 02/29/20 14:15 ALT 26 U/L (12-78) 02/29/20 14:15 Alkaline Phosphatase 83 U/L (45-117) 02/29/20 14:15 Amylase 278 U/L (25-115) H* 02/29/20 14:15 Lipase 61 U/L (73-393) L 02/29/20 14:15 Home Medications: RX: Amlodipine Besylate/Benazepril [Amlodipine-Benazepril 5-10 mg] 1 cap PO DAILY 02/19/20 RX: Aspirin [Lo-Dose Aspirin EC] 1 tab PO DAILY 02/19/20 RX: Celecoxib 1 cap PO DAILY 02/19/20 RX: Ergocalciferol (Vitamin D2) [Vitamin D2] 1 cap PO SEECOM 02/19/20 RX: Imiquimod 1 [place] [facility] 02/19/20 RX: Rivastigmine Tartrate [Exelon*] 3 mg PO BID 02/19/20 RX: Tamsulosin HCl 1 tab PO DAILY 02/19/20 RX: Trazodone [Desyrel*] 1 tab PO BEDTIME 02/19/20 RX: Colestipol HCl [Colestid] 1 - 2 gm PO 03/01/20 RX: Melatonin 10 mg PO DAILY 03/01/20 RX: Metformin HCl [Metformin HCl ER] 750 mg PO DAILY 03/01/20 RX: OLANZapine [Olanzapine] 10 mg PO BID 03/01/20 Time spent managing pt's care (in minutes): 47
[2020-03-01 13:47] VITALS: BP 108/68; TEMP 99.7
[2020-03-01] MEDS ORDERED: LORazepam 2 MG/ML VIAL IV ONE (13:58)
--- NOTE | 2020-03-01 15:29 | EKG ---
Test Date: 2020-02-29 Test Time: 14:20:54 [employer] Engineer: JOE MEASUREMENT RESULTS: Intervals: Rate: 108 VT: 150 QRSD: 72 QT: 342 QTc: 458 [place]: P: 65 VT: 150 QRS: 13 T: 73 INTERPRETIVE STATEMENTS: Sinus tachycardia with premature atrial complexes Otherwise normal ECG Compared to ECG 02/19/2020 01:17:34 Ventricular premature complex(es) no longer present Electronically Signed On 03-01-20 15:28:16 CDT by Eusebio Hernandez
== END 2020-03-01 16:18 | disposition hospice, home (50) | DRG 871 ==
LOC: ER 14:07 → ERHOLD 17:23
PROVIDERS: ADMIT Family Medicine; ATTEND Family Medicine
PROC: 02HV33Z Insertion of Infusion Device into Superior Vena Cava, Percutaneous Approach (ICD-10-PCS; principal; 2020-02-29)
PROC: 8E0ZXY6 Isolation (ICD-10-PCS; 2020-02-29)
DX: A41.9 Sepsis, unspecified organism (principal); R65.21 Severe sepsis with septic shock; I26.99 Other pulmonary embolism without acute cor pulmonale; J96.01 Acute respiratory failure with hypoxia; G93.41 Metabolic encephalopathy; J15.9 Unspecified bacterial pneumonia; N17.9 Acute kidney failure, unspecified; E87.2 Acidosis; Z03.818 Encounter for observation for suspected exposure to other biological agents ruled out; Z66 Do not resuscitate; I10 Essential (primary) hypertension; G20 Parkinson's disease; E11.65 Type 2 diabetes mellitus with hyperglycemia; G30.9 Alzheimer's disease, unspecified; F02.80 Dementia in other diseases classified elsewhere, unspecified severity, without behavioral disturbance, psychotic disturbance, mood disturbance, and anxiety; Z88.5 Allergy status to narcotic agent; Z79.82 Long term (current) use of aspirin; Z79.899 Other long term (current) drug therapy; Z79.84 Long term (current) use of oral hypoglycemic drugs; E78.5 Hyperlipidemia, unspecified
CPT/HCPCS: 36415; 51702; 70450; 71045; 80048; 80076; 81015; 82150; 82550; 82553; 82805; 83605; 83690; 83735; 83880; 84145; 84484; 85025; 85379; 85610; 85730; 86140; 87040; 87804; 93005; 94002; 99291; 99292; C9113; J0171; J0456; J0696; J2250; J2930; J3010; J7030; U0001